=== PATIENT | female | born 1975 | race Caucasian/White ===

== ENCOUNTER 2017-06-30 14:32 | Emergency (ER) | payer OTHER ==
[2017-06-30 14:55] VITALS: BP 136/83; PULSE 104; TEMP 98.6; BMI 45.4
--- NOTE | 2017-06-30 14:57 | PDOC ---
Rapid Medical Evaluation Time Seen by Provider: 06/30/17 14:50 Medical Evaluation: Allergies Allergy/AdvReac Type Severity Reaction Status Date / Time No Known Drug Allergies Allergy Verified 05/01/14 17:42 06/30/17 14:51 I have performed a brief in-person evaluation of this patient. The patient presents with a chief complaint of: vag bleeding yesterday, none today, pelvic/abdominal cramping/pain since yesterday, bloating, took Motrin with minimal relief, urinary "incontinence", US and labwork done last Wednesday, no results yet, +SOB, denies palpitations/lightheadedness/dizziness Pertinent physical exam findings: well appearing I have ordered the following: labs, US The patient will proceed to the ED for further evaluation. Discharge Disposition - Diagnosis Pelvic pain - Referrals - Patient Instructions - Post Discharge Activity
[2017-06-30 15:19] LABS: URINE APPEARANCE CLEAR; URINE BILIRUBIN NEGATIVE (NEGATIVE); URINE BLOOD NEGATIVE (NEGATIVE); URINE COLOR STRAW; URINE GLUCOSE (UA) NEGATIVE (NEGATIVE); URINE KETONE NEGATIVE (NEGATIVE); URINE LEUK ESTERASE TRACE (NEGATIVE); URINE NITRITE NEGATIVE (NEGATIVE); URINE PROTEIN NEGATIVE (NEGATIVE); URINE UROBILINOGEN NEGATIVE mg/dL (0.2-1.0)
[2017-06-30 15:21] LABS: BASO % 0.3 % (0-2.0); EOS % 0.6 % (0-4.5); HEMATOCRIT 30.5 % (32.4-45.2); HEMOGLOBIN 10.1 GM/dL (10.7-15.3); MCH 25.7 pg (25.7-33.7); MCHC 33.1 g/dl (32.0-36.0); MEAN CELL VOLUME 77.5 fl (80-96); MEAN PLT VOLUME 8.6 fl (7.5-11.1); MONO % 6.6 % (3.8-10.2); NEUT % 78.5 % (42.8-82.8); PLATELET COUNT 282 K/MM3 (134-434); RBC 3.93 M/mm3 (3.60-5.2); RDW 16.1 % (11.6-15.6); WHITE BLOOD COUNT 10.4 K/mm3 (4.0-10.0)
[2017-06-30 15:24] LABS: HCG,QUALITATIVE URINE NEGATIVE
[2017-06-30 15:42] LABS: ALBUMIN 3.3 g/dl (3.4-5.0); ALK PHOS 89 U/L (45-117); ANION GAP 7 (8-16); BILIRUBIN,TOTAL 0.3 mg/dL (0.2-1.0); BLOOD UREA NITROGEN 15 mg/dL (7-18); CALCIUM 8.4 mg/dL (8.5-10.1); CHLORIDE 103 mmol/L (98-107); CO2 27 mmol/L (21-32); CREATININE 0.7 mg/dL (0.55-1.02); GLUCOSE,RANDOM 103 mg/dL (74-106); POTASSIUM 4.1 mmol/L (3.5-5.1); SGOT/AST 18 U/L (15-37); SGPT/ALT 24 U/L (12-78); SODIUM 137 mmol/L (136-145); TOT PROT 7.3 g/dl (6.4-8.2)
--- NOTE | 2017-06-30 15:51 | PDOC ---
History of Present Illness - General Chief Complaint: Pain, Acute Stated Complaint: ABD PAIN Time Seen by Provider: 06/30/17 14:50 - History of Present Illness Initial Comments: 06/30/17 16:47 41 y.o. female with HTN and proctalgia fugax, anxiety and morbid obesity (s/p Gastric Bypass in 2014) presents c/o 2 day h/o diffuse abdominal cramping that is constant, 10/10 without any radiation. Patient denies any associated fevers/ chills, nausea/vomiting. Patient has been tolerating PO intake and endorses some constipation with 1-2 bowel movements over the last 2 days, normal is 3-4 bowel movement. Patient notes that her LMP finished yesterday and she had similar pain last month following the end of her menstrual cycle. Patient also notes her menstrual cycles have been increasingly heavy for the last 3-4 months. Patient was evaluated by her PMD last week who has scheduled an outpatient TVUS for next week. Past History - Past Medical History Allergies/Adverse Reactions: Allergies Allergy/AdvReac Type Severity Reaction Status Date / Time No Known Drug Allergies Allergy Verified 06/30/17 14:51 Home Medications: Ambulatory Orders NK [No Known Home Medication] 06/30/17 Anemia: No Asthma: No Cancer: No Cardiac Disorders: No CVA: No COPD: No CHF: No Dementia: No GI Disorders: Yes (GERD, OBESITY) Disorders: No HTN: Yes Hypercholesterolemia: No Liver Disease: No Psychiatric Problems: Yes (PANIC ATTACKS) Seizures: No Thyroid Disease: No - Surgical History Abdominal Surgery: Yes (GASTRIC BYPASS: 05/2013) Appendectomy: No Cardiac Surgery: No Cholecystectomy: Yes Lung Surgery: No Neurologic Surgery: No Orthopedic Surgery: No - Suicide/Smoking/Psychosocial Hx Smoking History: Never smoked Have you smoked in the past 12 months: No If you are a former smoker, when did you quit?: 2002 Hx Alcohol Use: Yes Drug/Substance Use Hx: No Substance Use Type: Alcohol Hx Substance Use Treatment: No Review of Systems - Review of Systems Constitutional: No: Chills, Fever HEENTM: No: Recent change in vision, Throat Pain Respiratory: No: Cough, Shortness of Breath Cardiac (ROS): No: Chest Pain, Lightheadedness, Palpitations, Syncope ABD/GI: Yes: Abdominal cramping : No: Burning, Dysuria, Hematuria *Physical Exam - Vital Signs Last Vital Signs Temp Pulse Resp BP Pulse Ox 98.6 F 104 H 19 136/83 100 06/30/17 14:51 06/30/17 14:51 06/30/17 14:51 06/30/17 14:51 06/30/17 14:51 - Physical Exam General Appearance: Yes: Nourished, Obese HEENT: positive: EOMI, JOSELITO Neck: positive: Tender, Supple Respiratory/Chest: positive: Lungs Clear Cardiovascular: positive: S1, S2. negative: Edema, Murmur Gastrointestinal/Abdominal: positive: Normal Bowel Sounds, Soft. negative: Tenderness, Hernia, Mass Musculoskeletal: negative: CVA Tenderness (R), CVA Tenderness (L) Integumentary: negative: Normal Color, Dry, Warm Neurologic: positive: Fully Oriented, Alert ED Treatment Course - LABORATORY CBC & Chemistry Diagram: 06/30/17 15:11 06/30/17 15:11 - ADDITIONAL ORDERS Additional order review: Laboratory Results 06/30/17 06/30/17 15:11 15:11 Lipase 211 Urine Color Straw Urine Appearance Clear Urine pH 6.0 Ur Specific [place] 1.019 Urine Protein Negative Urine Glucose (UA) Negative Urine Ketones Negative Urine Blood Negative Urine Nitrite Negative Urine Bilirubin Negative Urine Urobilinogen Negative Ur Leukocyte Esterase Trace Urine HCG, Qual Negative 06/30/17 15:11 RBC 3.93 MCV 77.5 L MCHC 33.1 RDW 16.1 H D MPV 8.6 D Neutrophils % 78.5 D Lymphocytes % 14.0 D Monocytes % 6.6 Eosinophils % 0.6 Basophils % 0.3 Medical Decision Making - Medical Decision Making 06/30/17 16:59 41 y.o. female who presents with abdominal pain. As patient has a h/o gastric bypass, will obtain CT Abdomen to r/o hernia, intussception as well as ischemia /leak (the latter less likely as surgery in 2015.). CBC, CMP ordered in triage. Patient signed out to Dr. Jefferson (Resident) and Dr. Alvares - CT Abdomen pending. *DC/Admit/Observation/Transfer Diagnosis at time of Disposition: Pelvic pain - Discharge Dispostion Disposition: HOME Condition at time of disposition: Stable - Referrals Referrals: Melinda Valladares [Primary Care Provider] - - Patient Instructions Additional Instructions: You were recently in the hospital because you had abdominal cramping. While you were here, you had labs done which were normal. You also had a CT scan done for your abdomen which did not show any acute pathology. The ultrasound was also normal. We suggest that you take tylenol or ibuprofen for pain. These can be received over the counter. 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 If you develop severe shortness of breath, severe abdominal pain, or chest pain , please go to the hospital. We hope you feel better soon. - Post Discharge Activity
[2017-06-30] MEDS ORDERED: morphine CARPU-JECT 4 MG/1 ML DISP.SYRIN IVPUSH ONE (17:12)
[2017-06-30] MEDS ORDERED: ACETAMINOPHEN 1000 MG/100 ML VIAL (NON FORMULARY) IVPB ONE (17:19)
[2017-06-30] MEDS ORDERED: ACETAMINOPHEN INJECTION 100 ML IVPB ONE (17:24)
[2017-06-30 18:25] LABS: EPI CELLS RARE /HPF (FEW); URINE MUCUS RARE
--- NOTE | 2017-06-30 18:44 | PDOC ---
Attending Attestation - HPI HPI: 06/30/17 18:45 The patient is a 41 year old female, with a significant past medical history of gastric bypass(2014), hypertension, GERD, obesity, and panic attacks, who presents to the emergency department with diffuse, crampy, abdominal pain since yesterday. Patient reports associated hard stools, but denies any nausea, vomiting, diarrhea, melena, or hematochezia. Patient reports similar pain during her LMP the past 2 months. Patient reports her period ended yesterday. She denies any fever or chills. Patient denies any recent travel or sick contacts. - Medical Decision Making 06/30/17 18:46 Documentation prepared by Mragarita Nuñez, acting as medical pathologist for Bertha Murry MD. <Margarita Nuñez - Last Filed: 06/30/17 19:12> - Resident Resident Name: Zion Turnerica - ED Attending Attestation I have performed the following: I have examined & evaluated the patient, The case was reviewed & discussed with the resident, I agree w/resident's findings & plan - Physicial Exam PE: GENERAL: Awake, alert, and fully oriented, in no acute distress HEAD: No signs of trauma EYES: PERRLA, EOMI, sclera anicteric, conjunctiva clear ENT: Auricles normal inspection, hearing grossly normal, nares patent, oropharynx clear without exudates. Moist mucosa NECK: Normal ROM, supple, no lymphadenopathy, JVD, or masses LUNGS: Breath sounds equal, clear to auscultation bilaterally. No wheezes, and no crackles HEART: Regular rate and rhythm, normal S1 and S2, no murmurs, rubs or gallops ABDOMEN: Soft, +periumbilical tenderness, normoactive bowel sounds. No guarding , no rebound. No masses EXTREMITIES: Normal range of motion, no edema. No clubbing or cyanosis. No cords, erythema, or tenderness NEUROLOGICAL: Cranial nerves II through XII grossly intact. Normal speech, normal gait SKIN: Warm, Dry, normal turgor, no rashes or lesions noted. - Medical Decision Making Pt with history of gastric bypass presenting with abd pain. She has had it once before, it is associated with her menstrual periods. She has not had imaging for it in the past, and with history of significant abd surgery, would obtain CT. If wnl, will DC home with facilities locator f/u, as endometriosis is on differential. <Bertha Murry - Last Filed: 07/02/17 12:53> ED Treatment Course - LABORATORY CBC & Chemistry Diagram: 06/30/17 15:11 06/30/17 15:11 - ADDITIONAL ORDERS Additional order review: Laboratory Results 06/30/17 06/30/17 06/30/17 15:11 15:11 15:11 Sodium 137 Potassium 4.1 Chloride 103 Carbon Dioxide 27 Anion Gap 7 L BUN 15 Creatinine 0.7 Creat Clearance w eGFR > 60 Random Glucose 103 Calcium 8.4 L Total Bilirubin 0.3 D AST 18 ALT 24 Alkaline Phosphatase 89 Total Protein 7.3 Albumin 3.3 L Lipase 211 Serum , Qual Urine Color Straw Urine Appearance Clear Urine pH 6.0 Ur Specific [place] 1.019 Urine Protein Negative Urine Glucose (UA) Negative Urine Ketones Negative Urine Blood Negative Urine Nitrite Negative Urine Bilirubin Negative Urine Urobilinogen Negative Ur Leukocyte Esterase Trace Urine WBC (Auto) 1 Urine RBC (Auto) 0 Ur Epithelial Cells Rare Urine Mucus Rare Urine HCG, Qual Negative 06/30/17 13:28 Sodium Potassium Chloride Carbon Dioxide Anion Gap BUN Creatinine Creat Clearance w eGFR Random Glucose Calcium Total Bilirubin AST ALT Alkaline Phosphatase Total Protein Albumin Lipase Serum , Qual Negative Urine Color Urine Appearance Urine pH Ur Specific [place] Urine Protein Urine Glucose (UA) Urine Ketones Urine Blood Urine Nitrite Urine Bilirubin Urine Urobilinogen Ur Leukocyte Esterase Urine WBC (Auto) Urine RBC (Auto) Ur Epithelial Cells Urine Mucus Urine HCG, Qual 06/30/17 15:11 RBC 3.93 MCV 77.5 L MCHC 33.1 RDW 16.1 H D MPV 8.6 D Neutrophils % 78.5 D Lymphocytes % 14.0 D Monocytes % 6.6 Eosinophils % 0.6 Basophils % 0.3 - RADIOLOGY Radiology Studies Ordered: 06/30/17 19:12 EXAM: Transvaginal US SUMMARY: The uterus is normal in size measuring 8.4 x 4.2 x 4.0 cm. No uterine masses are seen. A normal appearing endometrium of 8 mm thickness was demonstrated. The right ovary is normal in size and texture. Arterial flow is documented within the ovary. The left ovary could not be identified. There is no evidence of adnexal masses. There is a trace amount of free fluid within the cul-de- sac. IMPRESSION: Trace free pelvic fluid, otherwise normal pelvic sonogram. - Medications Given in the ED: ED Medications Discontinued Medications Generic Name Dose Route Start Last Admin Trade Name Jamie PRN Reason Stop Dose Admin Acetaminophen 1,000 mg 06/30/17 17:19 06/30/17 17:28 Ofirmev Injection - IVPB 06/30/17 17:20 1,000 mg ONCE ONE Administration Morphine Sulfate 4 mg 06/30/17 17:12 06/30/17 17:23 Morphine Injection - IVPUSH 06/30/17 17:13 Not Given ONCE ONE <Margarita Nuñez - Last Filed: 06/30/17 19:12> - LABORATORY CBC & Chemistry Diagram: 06/30/17 15:11 06/30/17 15:11 <Bertha Murry - Last Filed: 07/02/17 12:53>
--- NOTE | 2017-06-30 19:21 | PDOC ---
*Physical Exam - Vital Signs Last Vital Signs Temp Pulse Resp BP Pulse Ox 98.6 F 104 H 19 136/83 100 06/30/17 14:51 06/30/17 14:51 06/30/17 14:51 06/30/17 14:51 06/30/17 14:51 ED Treatment Course - LABORATORY CBC & Chemistry Diagram: 06/30/17 15:11 06/30/17 15:11 - ADDITIONAL ORDERS Additional order review: Laboratory Results 06/30/17 06/30/17 06/30/17 15:11 15:11 15:11 Sodium 137 Potassium 4.1 Chloride 103 Carbon Dioxide 27 Anion Gap 7 L BUN 15 Creatinine 0.7 Creat Clearance w eGFR > 60 Random Glucose 103 Calcium 8.4 L Total Bilirubin 0.3 D AST 18 ALT 24 Alkaline Phosphatase 89 Total Protein 7.3 Albumin 3.3 L Lipase 211 Serum , Qual Urine Color Straw Urine Appearance Clear Urine pH 6.0 Ur Specific [place] 1.019 Urine Protein Negative Urine Glucose (UA) Negative Urine Ketones Negative Urine Blood Negative Urine Nitrite Negative Urine Bilirubin Negative Urine Urobilinogen Negative Ur Leukocyte Esterase Trace Urine WBC (Auto) 1 Urine RBC (Auto) 0 Ur Epithelial Cells Rare Urine Mucus Rare Urine HCG, Qual Negative 06/30/17 13:28 Sodium Potassium Chloride Carbon Dioxide Anion Gap BUN Creatinine Creat Clearance w eGFR Random Glucose Calcium Total Bilirubin AST ALT Alkaline Phosphatase Total Protein Albumin Lipase Serum , Qual Negative Urine Color Urine Appearance Urine pH Ur Specific [place] Urine Protein Urine Glucose (UA) Urine Ketones Urine Blood Urine Nitrite Urine Bilirubin Urine Urobilinogen Ur Leukocyte Esterase Urine WBC (Auto) Urine RBC (Auto) Ur Epithelial Cells Urine Mucus Urine HCG, Qual 06/30/17 15:11 RBC 3.93 MCV 77.5 L MCHC 33.1 RDW 16.1 H D MPV 8.6 D Neutrophils % 78.5 D Lymphocytes % 14.0 D Monocytes % 6.6 Eosinophils % 0.6 Basophils % 0.3 - RADIOLOGY Radiology Studies Ordered: Category Date Time Status ABDOMEN & PELVIS CT WITH CONTR [CT] Stat CT Scan 06/30/17 17:07 Completed - Medications Given in the ED: ED Medications Discontinued Medications Generic Name Dose Route Start Last Admin Trade Name Freq PRN Reason Stop Dose Admin Acetaminophen 1,000 mg 06/30/17 17:19 06/30/17 17:28 Ofirmev Injection - IVPB 06/30/17 17:20 1,000 mg ONCE ONE Administration Morphine Sulfate 4 mg 06/30/17 17:12 06/30/17 17:23 Morphine Injection - IVPUSH 06/30/17 17:13 Not Given ONCE ONE Medical Decision Making - Medical Decision Making 06/30/17 19:[address] Turner. Pt with CT abd/pelvis- without acute pathology TVUS- WNL, normal sono Will assess pt and prepare for d/c *DC/Admit/Observation/Transfer Diagnosis at time of Disposition: Pelvic pain - Referrals Referrals: Melinda Valladares [Primary Care Provider] - - Patient Instructions - Post Discharge Activity
--- NOTE | 2017-06-30 19:25 | PDOC ---
*Physical Exam - Vital Signs Last Vital Signs Temp Pulse Resp BP Pulse Ox 98.6 F 104 H 19 136/83 100 06/30/17 14:51 06/30/17 14:51 06/30/17 14:51 06/30/17 14:51 06/30/17 14:51 ED Treatment Course - LABORATORY CBC & Chemistry Diagram: 06/30/17 15:11 06/30/17 15:11 - ADDITIONAL ORDERS Additional order review: Laboratory Results 06/30/17 06/30/17 06/30/17 15:11 15:11 15:11 Sodium 137 Potassium 4.1 Chloride 103 Carbon Dioxide 27 Anion Gap 7 L BUN 15 Creatinine 0.7 Creat Clearance w eGFR > 60 Random Glucose 103 Calcium 8.4 L Total Bilirubin 0.3 D AST 18 ALT 24 Alkaline Phosphatase 89 Total Protein 7.3 Albumin 3.3 L Lipase 211 Serum , Qual Urine Color Straw Urine Appearance Clear Urine pH 6.0 Ur Specific [place] 1.019 Urine Protein Negative Urine Glucose (UA) Negative Urine Ketones Negative Urine Blood Negative Urine Nitrite Negative Urine Bilirubin Negative Urine Urobilinogen Negative Ur Leukocyte Esterase Trace Urine WBC (Auto) 1 Urine RBC (Auto) 0 Ur Epithelial Cells Rare Urine Mucus Rare Urine HCG, Qual Negative 06/30/17 13:28 Sodium Potassium Chloride Carbon Dioxide Anion Gap BUN Creatinine Creat Clearance w eGFR Random Glucose Calcium Total Bilirubin AST ALT Alkaline Phosphatase Total Protein Albumin Lipase Serum , Qual Negative Urine Color Urine Appearance Urine pH Ur Specific [place] Urine Protein Urine Glucose (UA) Urine Ketones Urine Blood Urine Nitrite Urine Bilirubin Urine Urobilinogen Ur Leukocyte Esterase Urine WBC (Auto) Urine RBC (Auto) Ur Epithelial Cells Urine Mucus Urine HCG, Qual 06/30/17 15:11 RBC 3.93 MCV 77.5 L MCHC 33.1 RDW 16.1 H D MPV 8.6 D Neutrophils % 78.5 D Lymphocytes % 14.0 D Monocytes % 6.6 Eosinophils % 0.6 Basophils % 0.3 - Medications Given in the ED: ED Medications Discontinued Medications Generic Name Dose Route Start Last Admin Trade Name Freq PRN Reason Stop Dose Admin Acetaminophen 1,000 mg 06/30/17 17:19 06/30/17 17:28 Ofirmev Injection - IVPB 06/30/17 17:20 1,000 mg ONCE ONE Administration Morphine Sulfate 4 mg 06/30/17 17:12 06/30/17 17:23 Morphine Injection - IVPUSH 06/30/17 17:13 Not Given ONCE ONE Medical Decision Making - Medical Decision Making 06/30/17 19:[address] Turner. 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 While you were here, you had labs done which were normal. You also had a CT scan done for your abdomen which did not show any acute pathology. The ultrasound was also normal. We suggest that you take tylenol or ibuprofen for pain. These can be received over the counter. Please follow up with your primary care doctor and a payroll master in a week. If you develop severe shortness of breath, severe abdominal pain, or chest pain , please go to the hospital. We hope you feel better soon. - Post Discharge Activity
== END 2017-06-30 20:08 | disposition home or self-care (01) ==
LOC: JER 14:32
PROC: 3E033NZ Introduction of Analgesics, Hypnotics, Sedatives into Peripheral Vein, Percutaneous Approach (ICD-10-PCS; principal; 2017-06-30)
DX: R10.9 Unspecified abdominal pain (principal); Z98.84 Bariatric surgery status
CPT/HCPCS: 36415; 74177-TC; 76830-TC; 80053; 81003; 81015; 83690; 84703; 85025; 87086; 99284-25

== ENCOUNTER 2017-10-24 02:47 | Emergency (ER) | payer OTHER ==
[2017-10-24 02:55] VITALS: BMI 48.6
--- NOTE | 2017-10-24 03:18 | PDOC ---
History of Present Illness - General Chief Complaint: Allergic Reaction Stated Complaint: ALLERGIC REACTION Time Seen by Provider: 10/24/17 03:10 - History of Present Illness Initial Comments: 10/24/17 03:18 Ms. Gomez is a 41 yo female w/ pmh of gastric bypass(2014), HTN, GERD, morbid obesity, and panic attacks who presents for evaluation of lip and eye swelling this evening. She reports it started around 5 or 6 last night while she was at a graduation constitution party and she initially thought that she was bitten by a mosquito, however when she got home she realized her left eye had swollen as well. She currently takes HCTZ and lisinopril for her HTN. Denies any difficulty breathing although she says that this is increasing her anxiety. The patient denies chest pain, shortness of breath, headache and dizziness. Denies fever, chills, nausea, vomit, diarrhea and constipation. Denies dysuria, frequency, urgency and hematuria. Allergies: NKDA Past History - Past Medical History Allergies/Adverse Reactions: Allergies Allergy/AdvReac Type Severity Reaction Status Date / Time No Known Drug Allergies Allergy Verified 10/24/17 02:49 Home Medications: Ambulatory Orders EPINEPHrine (EPI-PEN 0.3MG) [Epipen 0.3MG -] 0.3 mg IM ASDIR #2 pens 10/24/17 Hydrochlorothiazide [Hctz -] 12.5 mg PO DAILY #30 cap 10/24/17 Prednisone [Prednisone 50 MG TABLETS] 50 mg PO DAILY #4 tablet 10/24/17 Anemia: No Asthma: No Cancer: No Cardiac Disorders: No CVA: No COPD: No CHF: No Dementia: No GI Disorders: Yes (GERD, OBESITY) Disorders: No HTN: Yes Hypercholesterolemia: No Liver Disease: No Psychiatric Problems: Yes (PANIC ATTACKS) Seizures: No Thyroid Disease: No - Surgical History Abdominal Surgery: Yes (GASTRIC BYPASS: 05/2013) Appendectomy: No Cardiac Surgery: No Cholecystectomy: Yes Lung Surgery: No Neurologic Surgery: No Orthopedic Surgery: No - Suicide/Smoking/Psychosocial Hx Smoking History: Never smoked Have you smoked in the past 12 months: No If you are a former smoker, when did you quit?: 2002 Information on smoking cessation initiated: No Hx Alcohol Use: No Drug/Substance Use Hx: No Substance Use Type: Alcohol Hx Substance Use Treatment: No Review of Systems - Review of Systems Comments:: 10/24/17 03:23 GENERAL/CONSTITUTIONAL: No fever or chills. No weakness. HEAD, EYES, EARS, NOSE AND THROAT: +Left eye swelling with midline lip swelling. No change in vision. No ear pain or discharge. No sore throat. CARDIOVASCULAR: No chest pain or shortness of breath RESPIRATORY: No cough, wheezing, or hemoptysis. GASTROINTESTINAL: No nausea, vomiting, diarrhea or constipation. GENITOURINARY: No dysuria, frequency, or change in urination. MUSCULOSKELETAL: No joint or muscle swelling or pain. No neck or back pain. SKIN: No rash NEUROLOGIC: No headache, vertigo, loss of consciousness, or change in strength/ sensation. ENDOCRINE: No increased thirst. No abnormal weight change HEMATOLOGIC/LYMPHATIC: No anemia, easy bleeding, or history of blood clots. ALLERGIC/IMMUNOLOGIC: No hives or skin allergy. *Physical Exam - Vital Signs Last Vital Signs Temp Pulse Resp BP Pulse Ox 98.3 F 97 H 19 139/77 97 10/24/17 02:50 10/24/17 02:50 10/24/17 02:50 10/24/17 02:50 10/24/17 02:50 - Physical Exam Comments: 10/24/17 03:24 GENERAL: +Patient morbidly obese. Awake, alert, and fully oriented, in no acute distress HEAD: No signs of trauma, normocephalic, atraumatic EYES: +Left eye swollen however open with normal vision. Middle of lip swollen. PERRLA, EOMI, sclera anicteric, conjunctiva clear ENT: Auricles normal inspection, hearing grossly normal, nares patent, oropharynx clear without exudates. Moist mucosa NECK: Normal ROM, supple, no lymphadenopathy, JVD, or masses LUNGS: No distress, speaks full sentences, clear to auscultation bilaterally HEART: Regular rate and rhythm, normal S1 and S2, no murmurs, rubs or gallops, peripheral pulses normal and equal bilaterally. ABDOMEN: Soft, nontender, normoactive bowel sounds. No guarding, no rebound. No masses EXTREMITIES: Normal inspection, Normal range of motion, no edema. No clubbing or cyanosis. NEUROLOGICAL: Cranial nerves II through XII grossly intact. Normal speech, normal gait, no focal sensorimotor deficits SKIN: Warm, Dry, normal turgor, no rashes or lesions noted. ED Treatment Course - LABORATORY CBC & Chemistry Diagram: 10/24/17 04:07 10/24/17 04:07 Medical Decision Making - Medical Decision Making 10/24/17 04:34 Ms. Gomez is a 41 yo female w/ pmh as described who presents for evaluation of swelling. Basic labs and urine sent for evaluation. Patient symptoms noted to be unilateral and suspicious for angioedema. Patient is noted to be on combination HCTZ/Lisinopril. Patient advised this may have cause her swelling and told to d/c lisinopril until able to f/u with PCP for further evaluation. 10/24/17 06:03 Patient given Rx for HCTZ dose w/out lisinopril. Prednisone burst and epipen Rx given as well. Patient will stay in ER until 0830 for observation. 10/24/17 06:23 Patient signed out to oncoming team for further observation. *DC/Admit/Observation/Transfer Diagnosis at time of Disposition: Swelling - Prescriptions - Referrals - Patient Instructions - Post Discharge Activity
[2017-10-24] MEDS ORDERED: methylPREDNISolone NA SUCC 125 MG/2 ML VIAL IVPUSH ONE (04:00)
[2017-10-24] MEDS ORDERED: FAMOTIDINE 20 MG/50 ML IVPB 20 MG/50 ML MG IVPB ONE ×3 (04:01→05:04)
--- NOTE | 2017-10-24 04:03 | PDOC ---
Attending Attestation - Resident Resident Name: Leandro Newberry - ED Attending Attestation I have performed the following: I have examined & evaluated the patient, The case was reviewed & discussed with the resident, I agree w/resident's findings & plan, Exceptions are as noted - HPI HPI: 10/24/17 05:03 41yo F hx of gastric bypass (2014), HTN (on lisinopril/HCTZ combo pill), GERD, morbid obesity and panic attacks presents to the ED with allergic rxn. Pt ate at a BBQ yest afternoon, and afterwards at 5:30pm noticed her upper lip was swollen. She did not think much of it but after she went to bed at 10:30p, she woke up at 12:30 and noticed her L upper eyelid was swollen. At that point she activated EMS. She was given benadryl 50mg en route and eyelid swelling has markedly improved per EMS. Pt denies any SOB, N/V, hives. Has never had an allergic reaction before. Last lisinopril was taken 11am yesterday. DEnies CP, F /C, abd pain, urinary sxs, weakness, numbness. Pt states she feels anxious and requests her home dose of xanax. - Physicial Exam PE: 10/24/17 05:16 GENERAL: Awake, alert, and fully oriented, in no acute distress. Obese. HEAD: No signs of trauma EYES: PERRLA, EOMI, sclera anicteric, conjunctiva clear. L upper eyelid with mild watery edema ENT: Nares patent, upper lip mildly edematous. No tongue edema. Mallampati II. NECK: Normal ROM, supple, no lymphadenopathy, JVD, or masses LUNGS: Breath sounds equal, clear to auscultation bilaterally. No wheezes, and no crackles HEART: Regular rate and rhythm, normal S1 and S2, no murmurs, rubs or gallops ABDOMEN: Soft, nontender, normoactive bowel sounds. No guarding, no rebound. No masses EXTREMITIES: Normal range of motion, no edema. No clubbing or cyanosis. No cords, erythema, or tenderness NEUROLOGICAL: Normal speech, cranial nerves intact, 5/5 strength in all 4 extremities, normal sensation to light touch in all 4 extremities, normal cerebellar exam, normal gait SKIN: Warm, Dry, normal turgor, no rashes or lesions noted. - Medical Decision Making 10/24/17 05:21 41yo F presents to the ED with likely BETINA angioedema vs less likely, allergic rxn. Pt treated with benadryl 50mg IV, methylpred 125mg, pepcid. No tongue involvement at this time and sxs seem to have improved since activating EMS. Will observe for a full 6hrs. If no progression of sxs, pt can be DC with strict return precautions. Will prescribe epi pen, prednisone, and HCTZ until f/ u with PMD. Pt instructed to stop lisinopril. Pt put on ED obs, case discussed with Dr. Crouch. 10/24/17 07:00 PT signed out to day attending for reassessment and further mgmt/dispo
[2017-10-24] MEDS ORDERED: ALPRAZolam 0.25 MG TABLET PO ONE (04:15)
[2017-10-24 04:20] LABS: BASO % 0.6 % (0-2.0); HEMATOCRIT 30.5 % (32.4-45.2); HEMOGLOBIN 9.8 GM/dL (10.7-15.3); LYMPH % 18.7 % (8-40); MCH 23.4 pg (25.7-33.7); MCHC 32.2 g/dl (32.0-36.0); MEAN CELL VOLUME 72.8 fl (80-96); MEAN PLT VOLUME 8.6 fl (7.5-11.1); MONO % 8.5 % (3.8-10.2); NEUT % 71.2 % (42.8-82.8); PLATELET COUNT 276 K/MM3 (134-434); RBC 4.19 M/mm3 (3.60-5.2); RDW 16.9 % (11.6-15.6); WHITE BLOOD COUNT 9.5 K/mm3 (4.0-10.0)
[2017-10-24 04:32] LABS: URINE APPEARANCE CLEAR; URINE BILIRUBIN NEGATIVE (<2.0 mg/dL); URINE COLOR LTYELLOW; URINE GLUCOSE (UA) NEGATIVE (NEGATIVE); URINE KETONE NEGATIVE (NEGATIVE); URINE LEUK ESTERASE NEGATIVE (NEGATIVE); URINE NITRITE NEGATIVE (NEGATIVE); URINE PROTEIN NEGATIVE (NEGATIVE)
[2017-10-24 04:40] LABS: HCG,QUALITATIVE URINE NEGATIVE
[2017-10-24 04:56] LABS: ALBUMIN 3.1 g/dl (3.4-5.0); ALK PHOS 72 U/L (45-117); ANION GAP 7 (8-16); BILIRUBIN,TOTAL 0.1 mg/dL (0.2-1.0); BLOOD UREA NITROGEN 12 mg/dL (7-18); CALCIUM 8.3 mg/dL (8.5-10.1); CHLORIDE 105 mmol/L (98-107); CO2 24 mmol/L (21-32); CREATININE 0.6 mg/dL (0.55-1.02); GLUCOSE,RANDOM 105 mg/dL (74-106); SGOT/AST 22 U/L (15-37); SGPT/ALT 25 U/L (12-78); SODIUM 136 mmol/L (136-145); TOT PROT 7.3 g/dl (6.4-8.2)
[2017-10-24] MEDS ORDERED: ALPRAZolam 0.25 MG TABLET ONE (05:02)
[2017-10-24] MEDS ORDERED: methylPREDNISolone NA SUCC 125 MG/2 ML VIAL ONE (05:04)
[2017-10-24 08:12] VITALS: BP 111/67; PULSE 88; TEMP 98.4
--- NOTE | 2017-10-24 08:33 | PDOC ---
*Physical Exam - Vital Signs Last Vital Signs Temp Pulse Resp BP Pulse Ox 98.4 F 88 16 111/67 100 10/24/17 08:11 10/24/17 08:11 10/24/17 08:11 10/24/17 08:11 10/24/17 08:11 - Physical Exam Comments: 10/24/17 08:31 GENERAL: Awake, alert, and fully oriented, in no acute distress HEAD: No signs of trauma, normocephalic, atraumatic EYES: PERRLA, EOMI, sclera anicteric, conjunctiva clear ENT: Auricles normal inspection, hearing grossly normal, nares patent, oropharynx clear without exudates. Moist mucosa NECK: Normal ROM, supple, no lymphadenopathy, JVD, or masses LUNGS: No distress, speaks full sentences, clear to auscultation bilaterally HEART: Regular rate and rhythm, normal S1 and S2, no murmurs, rubs or gallops, peripheral pulses normal and equal bilaterally. EXTREMITIES: Normal inspection, Normal range of motion, no edema. No clubbing or cyanosis. NEUROLOGICAL: Cranial nerves II through XII grossly intact. Normal speech, normal gait, no focal sensorimotor deficits SKIN: Warm, Dry, normal turgor, no rashes or lesions noted. ED Treatment Course - LABORATORY CBC & Chemistry Diagram: 10/24/17 04:07 10/24/17 04:07 - ADDITIONAL ORDERS Additional order review: Laboratory Results 10/24/17 10/24/17 04:09 04:07 Sodium 136 Potassium 4.0 Chloride 105 Carbon Dioxide 24 Anion Gap 7 L BUN 12 Creatinine 0.6 Creat Clearance w eGFR > 60 Random Glucose 105 Calcium 8.3 L Total Bilirubin 0.1 L AST 22 ALT 25 Alkaline Phosphatase 72 Creatine Kinase 90 Troponin I < 0.02 Total Protein 7.3 Albumin 3.1 L Urine Color Ltyellow Urine Appearance Clear Urine pH 5.0 Ur Specific [place] 1.018 Urine Protein Negative Urine Glucose (UA) Negative Urine Ketones Negative Urine Blood Negative Urine Nitrite Negative Urine Bilirubin Negative Urine Urobilinogen 2.0 H Ur Leukocyte Esterase Negative Urine HCG, Qual Negative 10/24/17 04:07 RBC 4.19 MCV 72.8 L MCHC 32.2 RDW 16.9 H MPV 8.6 Neutrophils % 71.2 Lymphocytes % 18.7 D Monocytes % 8.5 Eosinophils % 1.0 Basophils % 0.6 - Medications Given in the ED: ED Medications Discontinued Medications Generic Name Dose Route Start Last Admin Trade Name Jamie PRN Reason Stop Dose Admin Alprazolam 0.5 mg 10/24/17 04:15 10/24/17 05:14 Xanax - PO 10/24/17 04:16 0.5 mg ONCE ONE Administration Famotidine/Sodium Chloride 20 mg in 50 mls @ 100 mls/hr 10/24/17 04:01 05:14 Pepcid 20 Mg Premixed Ivpb - IVPB 10/24/17 04:30 100 mls/hr ONCE ONE Administration Methylprednisolone Sodium Succinate 125 mg 10/24/17 04:00 10/24/17 04:12 Solu-Medrol - IVPUSH 10/24/17 04:01 125 mg ONCE ONE Administration Medical Decision Making - Medical Decision Making 10/24/17 08:[address] Newberry. Patient is 41F with history of gastric bypass (2014), HTN, GERD, morbid obesity, and panic attacks here today with angioedema. Good for discharge at 8:30 if symptoms continue to be resolved. Patient re-evaluated, swelling has resolved and patient feels well. Lungs clear. Instructed to stop nadeem inhibitor. Discharged with return precautions and PCP follow up. *DC/Admit/Observation/Transfer Diagnosis at time of Disposition: Swelling - Prescriptions - Referrals - Patient Instructions - Post Discharge Activity
== END 2017-10-24 09:02 | disposition home or self-care (01) ==
LOC: JER 02:47 → UNDOADMOB 05:40 → JERBED 05:40
PROC: 3E033GC Introduction of Other Therapeutic Substance into Peripheral Vein, Percutaneous Approach (ICD-10-PCS; principal; 2017-10-24)
PROC: 3E0333Z Introduction of Anti-inflammatory into Peripheral Vein, Percutaneous Approach (ICD-10-PCS; 2017-10-24)
DX: T78.3XXA Angioneurotic edema, initial encounter (principal); T46.4X5A Adverse effect of angiotensin-converting-enzyme inhibitors, initial encounter; Y92.038 Other place in apartment as the place of occurrence of the external cause
CPT/HCPCS: 36415; 80053; 81003; 82550; 84484; 84703; 85025; 87086; 96365; 96375; 99283-25

== ENCOUNTER 2018-01-18 05:45 | Emergency (ER) | payer OTHER ==
[2018-01-18 06:04] VITALS: TEMP 98.6; BMI 44.6
[2018-01-18] MEDS ORDERED: diazePAM 5 MG TABLET PO ONE (06:28)
--- NOTE | 2018-01-18 06:28 | PDOC ---
History of Present Illness - General Chief Complaint: Chest Pain Stated Complaint: CHEST PAIN History Source: Patient Exam Limitations: No Limitations - History of Present Illness Initial Comments: 01/18/18 06:25 42-year-old female history of anxiety and panic attacks previous migraine headaches and hypertension here today complaining of headache and epigastric abdominal pain. patient has been under a lot of stress recently working 2 jobs and is currently undergoing a divorce describes . has been getting several episodes of racing heart beat similar to prior panic attackes. denies any nausea or vomiting, no chest pressure, no new weakness numbness or tingling no head trauma no fevers chills no change to her vision 01/18/18 07:00 Past History - Past Medical History Allergies/Adverse Reactions: Allergies Allergy/AdvReac Type Severity Reaction Status Date / Time No Known Drug Allergies Allergy Verified 01/18/18 06:01 Home Medications: Ambulatory Orders EPINEPHrine (EPI-PEN 0.3MG) [Epipen 0.3MG -] 0.3 mg IM ASDIR #2 pens 10/24/17 Hydrochlorothiazide [Hctz -] 12.5 mg PO DAILY #30 cap 10/24/17 Prednisone [Prednisone 50 MG TABLETS] 50 mg PO DAILY #4 tablet 10/24/17 Anemia: No Asthma: No Cancer: No Cardiac Disorders: No CVA: No COPD: No CHF: No Dementia: No GI Disorders: Yes (GERD, OBESITY) Disorders: No HTN: Yes Hypercholesterolemia: No Liver Disease: No Psychiatric Problems: Yes (PANIC ATTACKS) Seizures: No Thyroid Disease: No - Surgical History Abdominal Surgery: Yes (GASTRIC BYPASS: 05/2013) Appendectomy: No Cardiac Surgery: No Cholecystectomy: Yes Lung Surgery: No Neurologic Surgery: No Orthopedic Surgery: No - Immunization History Immunization Up to Date: No - Suicide/Smoking/Psychosocial Hx Smoking History: Never smoked Have you smoked in the past 12 months: No If you are a former smoker, when did you quit?: 2002 Information on smoking cessation initiated: No Hx Alcohol Use: No Drug/Substance Use Hx: No Substance Use Type: Alcohol Hx Substance Use Treatment: No Review of Systems - Review of Systems Constitutional: No: Diaphoresis, Fever HEENTM: No: Eye Pain, Blurred Vision Respiratory: No: Cough, Orthopnea, Shortness of Breath Cardiac (ROS): Yes: Chest Pain ABD/GI: Yes: Nausea : No: Burning, Dysuria, Discharge Musculoskeletal: Yes: Back Pain Integumentary: No: Bruising Neurological: Yes: Headache All Other Systems: Reviewed and Negative *Physical Exam - Vital Signs Last Vital Signs Temp Pulse Resp BP Pulse Ox 98.6 F 109 H 20 132/61 99 01/18/18 05:48 01/18/18 05:48 01/18/18 05:48 01/18/18 05:48 01/18/18 05:48 - Physical Exam General Appearance: Yes: Appropriately Dressed HEENT: positive: Normal ENT Inspection Neck: positive: Trachea midline Respiratory/Chest: positive: Lungs Clear, Normal Breath Sounds. negative: Chest Tender Cardiovascular: positive: Regular Rhythm, Regular Rate Gastrointestinal/Abdominal: positive: Normal Bowel Sounds, Flat, Soft. negative : Tender Musculoskeletal: positive: Normal Inspection. 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 Differential includes anemia electrolyte abnormality plan treat headache with IV fluids Reglan Tylenol will treat the muscle spasm and anxiety with Valium 5 mg by mouth follow-up with outpatient evaluation *DC/Admit/Observation/Transfer - Referrals Referrals: Melinda Valladares [Primary Care Provider] - - Patient Instructions - Post Discharge Activity
[2018-01-18] MEDS ORDERED: METOCLOPRAMIDE HCL INJECTION 10 MG/2 ML VIAL IVPUSH ONE (06:29)
[2018-01-18] MEDS ORDERED: SODIUM CHLORIDE 0.9% 1000 ML INFUS.BAG IV ONE (06:30)
[2018-01-18] MEDS ORDERED: diazePAM 5 MG TABLET ONE (07:14)
[2018-01-18] MEDS ORDERED: METOCLOPRAMIDE HCL INJECTION 10 MG/2 ML VIAL ONE (07:14)
[2018-01-18 07:20] LABS: BASO % 0.8 % (0-2.0); EOS % 2.3 % (0-4.5); HEMATOCRIT 30.4 % (32.4-45.2); HEMOGLOBIN 9.5 GM/dL (10.7-15.3); LYMPH % 20.2 % (8-40); MCH 21.7 pg (25.7-33.7); MCHC 31.3 g/dl (32.0-36.0); MEAN CELL VOLUME 69.4 fl (80-96); MEAN PLT VOLUME 8.4 fl (7.5-11.1); MONO % 6.8 % (3.8-10.2); NEUT % 69.9 % (42.8-82.8); PLATELET COUNT 297 K/MM3 (134-434); RBC 4.38 M/mm3 (3.60-5.2); RDW 17.2 % (11.6-15.6); WHITE BLOOD COUNT 7.3 K/mm3 (4.0-10.0)
[2018-01-18 07:48] LABS: ALBUMIN 3.1 g/dl (3.4-5.0); ANION GAP 9 MMOL/L (8-16); BLOOD UREA NITROGEN 12 mg/dL (7-18); CALCIUM 8.5 mg/dL (8.5-10.1); CHLORIDE 103 mmol/L (98-107); CO2 28 mmol/L (21-32); CREATININE 0.6 mg/dL (0.55-1.3); GLUCOSE,RANDOM 110 mg/dL (74-106); POTASSIUM 3.5 mmol/L (3.5-5.1); SGOT/AST 18 U/L (15-37); SGPT/ALT 20 U/L (13-61); SODIUM 140 mmol/L (136-145)
[2018-01-18 07:52] LABS: ALK PHOS 80 U/L (45-117); BILIRUBIN,TOTAL 0.2 mg/dL (0.2-1); TOT PROT 7.5 g/dl (6.4-8.2)
[2018-01-18 08:22] LABS: HCG,QUALITATIVE URINE Negative
[2018-01-18 08:32] LABS: URINE APPEARANCE CLEAR; URINE BILIRUBIN NEGATIVE (<2.0 mg/dL); URINE COLOR STRAW; URINE GLUCOSE (UA) NEGATIVE (NEGATIVE); URINE KETONE NEGATIVE (NEGATIVE); URINE LEUK ESTERASE NEGATIVE (NEGATIVE); URINE NITRITE NEGATIVE (NEGATIVE); URINE PROTEIN NEGATIVE (NEGATIVE); URINE UROBILINOGEN NEGATIVE mg/dL (0.2-1.0)
[2018-01-18 08:40] LABS: EPI CELLS RARE /HPF (FEW)
--- NOTE | 2018-01-18 09:04 | PDOC ---
*Physical Exam - Vital Signs Last Vital Signs Temp Pulse Resp BP Pulse Ox 98.6 F 109 H 20 132/61 99 01/18/18 05:48 01/18/18 05:48 01/18/18 05:48 01/18/18 05:48 01/18/18 06:22 - Physical Exam Comments: 01/18/18 08:59 Vital signs normal, heart rate 80 on my examination Seated up in stretcher, smiling and feeling much better Heart is regular, lungs are clear No edema or calf tenderness ED Treatment Course - LABORATORY CBC & Chemistry Diagram: 01/18/18 07:08 01/18/18 07:08 - ADDITIONAL ORDERS Additional order review: Laboratory Results 01/18/18 01/18/18 07:55 07:08 Sodium 140 Potassium 3.5 Chloride 103 Carbon Dioxide 28 Anion Gap 9 BUN 12 Creatinine 0.6 Creat Clearance w eGFR > 60 Random Glucose 110 H Calcium 8.5 Total Bilirubin 0.2 AST 18 ALT 20 Alkaline Phosphatase 80 Creatine Kinase 73 Troponin I < 0.02 Total Protein 7.5 Albumin 3.1 L Urine Color Straw Urine Appearance Clear Urine pH 7.0 D Ur Specific [place] 1.009 Urine Protein Negative Urine Glucose (UA) Negative Urine Ketones Negative Urine Blood 2+ H Urine Nitrite Negative Urine Bilirubin Negative Urine Urobilinogen Negative Ur Leukocyte Esterase Negative Urine WBC (Auto) 1 Urine RBC (Auto) 8 Ur Epithelial Cells Rare Urine HCG, Qual Negative 01/18/18 07:08 RBC 4.38 MCV 69.4 L MCHC 31.3 L RDW 17.2 H MPV 8.4 Neutrophils % 69.9 Lymphocytes % 20.2 Monocytes % 6.8 Eosinophils % 2.3 D Basophils % 0.8 - Medications Given in the ED: ED Medications Discontinued Medications Generic Name Dose Route Start Last Admin Trade Name Freq PRN Reason Stop Dose Admin Diazepam 5 mg 01/18/18 06:28 01/18/18 07:21 Valium - PO 01/18/18 06:29 5 mg ONCE ONE Administration Metoclopramide HCl 10 mg 01/18/18 06:29 01/18/18 07:21 Reglan Injection - IVPUSH 01/18/18 06:30 10 mg ONCE ONE Administration Sodium Chloride 1,000 ml 01/18/18 06:30 01/18/18 07:21 Normal Saline - IV 01/18/18 06:31 1,000 ml ONCE ONE Administration Medical Decision Making - Medical Decision Making 01/18/18 08:59 Received signout on this healthy 42-year-old female with history of anxiety who presented with episode of chest pain/palpitations/hand tingling/feeling of doom while sitting at home last night, had very similar episode the night before. This is similar to past anxiety or panic attacks, but she did not take her Xanax as she was afraid something was happening with a heart. She has no exertional limitations, no PE risk factors. EKG was nonfocal and without acute ischemic changes. Plan at sign out was reassurance, follow up labs and chest x-ray, and discharge if she felt better. Labs are normal except for baseline anemia that has been present since her gastric bypass, troponin is negative, chest x-ray is clear. Feels much better, agrees with discharge plan, has Xanax at home. Understands return criteria. *DC/Admit/Observation/Transfer Diagnosis at time of Disposition: Anxiety attack - Discharge Dispostion Disposition: HOME Condition at time of disposition: Improved - Referrals Referrals: Melinda Valladares [Primary Care Provider] - - Patient Instructions Printed Discharge Instructions: DI for Atypical Chest Pain, Anxiety and Panic Attacks (Alternative Therapy) Additional Instructions: Activity as tolerated. Stay hydrated. Blood tests, an EKG, and a chest x-ray showed no acute abnormalities. Your symptoms could be due to an anxiety attack, as discussed. Tylenol 1000 mg every 8 hours and/or ibuprofen 600 mg every 8 hours as needed for headache. Takes Xanax as previously prescribed as needed for persistent anxiety. Continue your medications as previously prescribed by your physician. You should follow up with your primary doctor as soon as possible regarding today's emergency department visit. Return to the emergency department for any new or concerning symptoms, particularly persistent severe anxiety, persistent chest pain or difficulty breathing, cough or fevers or chills. - Post Discharge Activity
[2018-01-18 09:20] VITALS: BP 103/52; PULSE 78
--- NOTE | 2018-01-18 16:18 | EKG ---
Test Reason : Blood Pressure : / mmHG Vent. Rate : 087 BPM Atrial Rate : 087 BPM P-R Int : 178 ms QRS Dur : 096 ms QT Int : 374 ms P-R-T Axes : 035 033 007 degrees QTc Int : 450 ms NORMAL SINUS RHYTHM NORMAL ECG NO PREVIOUS ECGS AVAILABLE Confirmed by Fadi Ordoñez ([id number]) on 01/18/2018 4:18:10 PM Referred By: Confirmed By:Fadi Ordoñez
== END 2018-01-18 09:19 | disposition home or self-care (01) ==
LOC: JER 05:45
PROC: 3E033GC Introduction of Other Therapeutic Substance into Peripheral Vein, Percutaneous Approach (ICD-10-PCS; principal; 2018-01-18)
PROC: 3E0337Z Introduction of Electrolytic and Water Balance Substance into Peripheral Vein, Percutaneous Approach (ICD-10-PCS; 2018-01-18)
DX: F41.0 Panic disorder [episodic paroxysmal anxiety] (principal)
CPT/HCPCS: 36415; 71046-TC-FY; 80053; 81003; 81015; 82550; 84484; 84703; 85025; 93005; 93010; 96374; 99285-25; J7030

== ENCOUNTER 2019-03-05 00:30 | Emergency (ER) | payer OTHER ==
--- NOTE | 2019-03-05 00:41 | PDOC ---
Attending Attestation - Resident Resident Name: AshleyCaitlyn - ED Attending Attestation I have performed the following: I have examined & evaluated the patient, The case was reviewed & discussed with the resident, I agree w/resident's findings & plan - HPI HPI: 03/05/19 02:52 see resident hpi - Physicial Exam PE: 03/05/19 02:52 agree with resident exam - Medical Decision Making 03/05/19 03:05 43-year-old female with persistent right lower quadrant/right adnexal pain Plan for repeat ultrasound and CT scan of the abdomen and pelvis
[2019-03-05] MEDS ORDERED: SODIUM CHLORIDE 1,000 ML IV STA (01:07)
[2019-03-05 01:11] VITALS: BP 122/71; PULSE 96; TEMP 98.2; BMI 48.0
[2019-03-05 01:35] LABS: EPI CELLS 4.8 /HPF (0-5/HPF); HYALINE CASTS 4 /lpf (0-8); URINE APPEARANCE CLEAR; URINE BACTERIA 35.1 /hpf (NEGATIVE); URINE BILIRUBIN NEGATIVE (NEGATIVE); URINE COLOR YELLOW; URINE GLUCOSE (UA) NEGATIVE (NEGATIVE); URINE KETONE TRACE (NEGATIVE); URINE LEUK ESTERASE TRACE (NEGATIVE); URINE NITRITE NEGATIVE (NEGATIVE); URINE PROTEIN NEGATIVE (NEGATIVE); URINE RBC 1 /hpf (0-4); URINE UROBILINOGEN 0.2 mg/dL (0.2-1.0); URINE WBC 6 /hpf (0-5)
[2019-03-05 01:47] LABS: BASO % 0.6 % (0-2.0); HEMATOCRIT 24.9 % (32.4-45.2); LYMPH % 19.3 % (8-40); MEAN CELL VOLUME 59.3 fl (80-96); MEAN PLT VOLUME 8.9 fl (7.5-11.1); MONO % 7.7 % (3.8-10.2); NEUT % 71.4 % (42.8-82.8); PLATELET COUNT 311 K/MM3 (134-434); RDW 19.9 % (11.6-15.6); WHITE BLOOD COUNT 10.2 K/mm3 (4.0-10.0)
[2019-03-05 02:28] LABS: CREATININE 0.7 mg/dL (0.55-1.3)
[2019-03-05 02:29] LABS: BILIRUBIN,TOTAL 0.3 mg/dL (0.2-1)
[2019-03-05 02:34] LABS: MACROCYTOSIS 0; OVALOCYTE 0; SICKELED CELLS 0; TARGET CELLS 0; TEAR DROP CELLS 0
[2019-03-05 02:35] LABS: HELMET CELLS 0; HOWELL-JOLLY BODIES 0; TOXIC GRANULATION 0
[2019-03-05 02:36] LABS: ANISOCYTOSIS 2+
--- NOTE | 2019-03-05 03:20 | PDOC ---
History of Present Illness - General Chief Complaint: Pain Stated Complaint: ABD AND BACK PAIN Time Seen by Provider: 03/05/19 00:41 History Source: Patient Exam Limitations: No Limitations - History of Present Illness Initial Comments: 03/05/19 03:19 43y F with PMH of HTN, Anxiety, Gastric Bypass presenting to ED with complaints of RLQ abdominal pain that started 1w ago and has been getting worse. Patient went to urgent care last week when pain started, told she had a UTI and was given Macrobid. She then got a call stating that she did not have an infection but she finished the antibiotic course. She says that the pain has stayed in the RLQ and radiates to the back. Associated with nausea. Denies vomiting, diarrhea, constipation, chest pain, sob, vaginal bleeding, discharge, urinary symptoms. Has not had pain like this before. Due to episodes of abnormal uterine bleeding, patient had TVUS done 4d ago which demonstrated normal uterus but adnexae could not be visualized. She has been taking Motrin for the pain but it has not been helping. PMD: PMH: see hpi PSH: see hpi Meds: xanax, hctz Allergies: nkda Social: denies Past History - Past Medical History Allergies/Adverse Reactions: Allergies Allergy/AdvReac Type Severity Reaction Status Date / Time No Known Drug Allergies Allergy Verified 02/20/18 17:22 Home Medications: Ambulatory Orders Hydrochlorothiazide [Hctz -] 25 mg PO DAILY 01/18/18 Alprazolam [Xanax] 0.25 mg PO DAILY #2 tablet MDD 1 02/20/18 Anemia: No Asthma: No Cancer: No Cardiac Disorders: No CVA: No COPD: No CHF: No Dementia: No GI Disorders: Yes (GERD, OBESITY) Disorders: No HTN: Yes Hypercholesterolemia: No Liver Disease: No Psychiatric Problems: Yes (PANIC ATTACKS) Seizures: No Thyroid Disease: No - Surgical History Abdominal Surgery: Yes (GASTRIC BYPASS: 05/2013) Appendectomy: No Cardiac Surgery: No Cholecystectomy: Yes Lung Surgery: No Neurologic Surgery: No Orthopedic Surgery: No - Immunization History Immunization Up to Date: No - Psycho Social/Smoking Cessation Hx Smoking History: Unknown if ever smoked Have you smoked in the past 12 months: No If you are a former smoker, when did you quit?: 2002 Hx Alcohol Use: No Drug/Substance Use Hx: No Substance Use Type: Alcohol Hx Substance Use Treatment: No Review of Systems - Review of Systems Constitutional: No: Chills, Fever, Weakness HEENTM: No: Symptoms Reported Respiratory: No: Symptoms reported Cardiac (ROS): No: Chest Pain, Lightheadedness, Palpitations ABD/GI: Yes: See HPI : No: Symptoms Reported Musculoskeletal: No: Symptoms Reported Integumentary: No: Symptoms Reported Neurological: No: Symptoms reported *Physical Exam - Vital Signs Last Vital Signs Temp Pulse Resp BP Pulse Ox 98.2 F 96 H 18 122/71 97 03/05/19 01:30 EDT 03/05/19 01:30 EDT 03/05/19 01:30 EDT 03/05/19 01:30 EDT 03/05/19 01:30 EDT - Physical Exam General Appearance: Yes: Appropriately Dressed, Obese. No: Apparent Distress HEENT: positive: EOMI, JOSELITO. negative: Scleral Icterus (R), Scleral Icterus (L) Neck: positive: Trachea midline, Supple. negative: Lymphadenopathy (R), Lymphadenopathy (L) Respiratory/Chest: positive: Lungs Clear, Normal Breath Sounds. negative: Crackles, Rales, Rhonchi, Stridor, Wheezing Cardiovascular: positive: Regular Rhythm, Regular Rate, S1, S2. negative: Edema , JVD, Murmur Vascular Pulses: Dorsalis-Pedis (R): 2+, Doralis-Pedis (L): 2+ Female Pelvic Exam: negative: CMT, adnexal tenderness Gastrointestinal/Abdominal: positive: Normal Bowel Sounds, Soft, Tenderness (RLQ ). negative: Protuberent, Guarding, Rebound, Hernia Musculoskeletal: negative: CVA Tenderness Extremity: positive: Normal Capillary Refill. negative: Swelling, Calf Tenderness, Erythema Integumentary: positive: Normal Color, Dry, Warm Neurologic: positive: transfer and line up worker II-XII NML intact, Fully Oriented, Alert, Normal Mood/ Affect, Normal Response, Motor Strength /5 ED Treatment Course - LABORATORY CBC & Chemistry Diagram: 03/05/19 01:19 EST 03/05/19 01:19 EST - ADDITIONAL ORDERS Additional order review: Laboratory Results 03/05/19 03/05/19 03/05/19 01:24 EST 01:24 EST 01:19 EST Sodium 138 Potassium 3.5 Chloride 101 Carbon Dioxide 26 Anion Gap No Result Required. BUN 14.0 Creatinine 0.7 Est GFR (CKD-EPI)AfAm 122.13 Est GFR (CKD-EPI)NonAf 105.37 Random Glucose 108 H Calcium 9.2 Total Bilirubin 0.3 AST 20 ALT 15 Alkaline Phosphatase 87 Total Protein 7.7 Albumin 3.8 Urine Color Yellow Urine Appearance Clear Urine pH 5.0 D Ur Specific [place] 1.033 Urine Protein Negative Urine Glucose (UA) Negative Urine Ketones Trace H Urine Blood Negative Urine Nitrite Negative Urine Bilirubin Negative Urine Urobilinogen 0.2 Ur Leukocyte Esterase Trace Urine WBC (Auto) 6 Urine RBC (Auto) 1 Urine Casts (Auto) 4 U Epithel Cells (Auto) 4.8 Urine Bacteria (Auto) 35.1 Urine HCG, Qual Negative 03/05/19 01:19 EST RBC 4.20 MCV 59.3 L MCHC 32.0 RDW 19.9 H MPV 8.9 Neutrophils % 71.4 Lymphocytes % 19.3 Monocytes % 7.7 Eosinophils % 1.0 Basophils % 0.6 - RADIOLOGY Radiology Studies Ordered: Category Date Time Status ABDOMEN & PELVIS CT WITH CONTR [CT] Stat CT Scan 03/05/19 01:11 Taken TRANSVAGINAL ULTRASOUND US [US] Stat Ultrasound 03/05/19 01:11 Taken - Medications Given in the ED: ED Medications Discontinued Medications Generic Name Dose Route Start Last Admin Trade Name Freq PRN Reason Stop Dose Admin Sodium Chloride 1,000 mls @ 1,000 mls/hr 03/05/19 01:07 EST 03/05/19 02:09 Normal Saline - IV 03/05/19 02:06 1,000 mls/hr ASDIR STA Administration Medical Decision Making - Medical Decision Making 03/05/19 03:26 43y F with PMH of anxiety, htn, gastric bypass presenting with RLQ abdominal pain x 1w. vitals wnl ddx includes but not limited to appendicitis, torsion, toa, cyst, colitis, diverticulitis, nephrolithiasis, uti labs including lipase, lact, ua, ucx ordered. pt refusing pain meds at this time iv fluids, tvus, ctap tvus: normal uterus, ovaries could not be visualized as per prior tvus a few days ago. Surgical changes stomach and left upper quadrant small bowel. 1.7 cm incidental lipoma distal stomach. No bowel obstruction or inflammation. No free fluid or free air. No evidence for appendicitis. Few diverticula colon. Unremarkable liver, spleen, stomach, pancreas, kidneys and gallbladder. 2.4 cm dominant follicle right ovary cannot r/o torsion however patient did not have adnexal tenderness per exam and no acute pain (pain x 1w) will give toradol. no lab abnormalities, no uti. safe for dc home. 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 given return precautions. Discharge - Discharge Information Problems reviewed: Yes Clinical Impression/Diagnosis: Pelvic pain Condition: Good Disposition: HOME - Admission No - Follow up/Referral Referrals: Deuce Nascimento MD [Primary Care Provider] - - Patient Discharge Instructions Patient Printed Discharge Instructions: DI for Abdominal Pain-Adult, DI for Pelvic Pain Additional Instructions: You were seen in the emergency room today for abdominal pain. The blood work shows a low hemoglobin, but is otherwise normal. The CT results were provided to you. This is likely due to the follicle in the right ovary. Please follow up with your lieutenant/deputy. You can take ibuprofen and Tylenol for the pain as needed. Come back to the emergency room for worsening pain, vomiting, fevers, chills or if any new or concerning symptom develops. Thank you - Post Discharge Activity
[2019-03-05] MEDS ORDERED: KETOROLAC TROMETHAMINE 15 MG/ML VIAL IVPUSH ONE (03:43)
[2019-03-05] MEDS ORDERED: KETOROLAC TROMETHAMINE 30 MG/1 ML VIAL ONE (03:53)
[2019-03-05 07:31] LABS: ALBUMIN 3.3 g/dl (3.4-5.0); BLOOD UREA NITROGEN 14.1 mg/dL (7-18); CALCIUM 8.6 mg/dL (8.5-10.1); POTASSIUM 3.4 mmol/L (3.5-5.1); TOT PROT 7.6 g/dl (6.4-8.2)
== END 2019-03-05 04:10 | disposition home or self-care (01) ==
LOC: JER 00:30
PROC: 3E0337Z Introduction of Electrolytic and Water Balance Substance into Peripheral Vein, Percutaneous Approach (ICD-10-PCS; principal; 2019-03-05)
PROC: 3E0333Z Introduction of Anti-inflammatory into Peripheral Vein, Percutaneous Approach (ICD-10-PCS; 2019-03-05)
DX: N83.201 Unspecified ovarian cyst, right side (principal); R10.2 Pelvic and perineal pain; I10 Essential (primary) hypertension; F41.9 Anxiety disorder, unspecified; E66.01 Morbid (severe) obesity due to excess calories; Z68.42 Body mass index [BMI] 45.0-49.9, adult; Z98.84 Bariatric surgery status
CPT/HCPCS: 36415; 74177-TC; 76830-TC; 80053; 81003; 83690; 84703; 85025; 87086; 96361; 96374; 99283-25; J7030

== ENCOUNTER 2019-03-19 03:06 | Emergency (ER) | payer OTHER ==
[2019-03-19 03:15] VITALS: BP 143/82; PULSE 92; TEMP 97.8; BMI 47.2
--- NOTE | 2019-03-19 03:25 | PDOC ---
History of Present Illness - General Chief Complaint: Psychiatric Stated Complaint: HEADACHE - History of Present Illness Initial Comments: The pt is a 43F with PMH of HTN, Anxiety, Gastric Bypass, EtOH abuse presents for evaluation of anxiety, concern for GUTIÉRREZ, and chest discomfort. The pt reports feeling more anxious than usual tonight and took her home Xanax 0.5mg PO at 2130 and again at 0200. She describes persistent racing thoughts, concern over her GUTIÉRREZ, and chest discomfort. The GUTIÉRREZ is described as gradual onset, global, tingling, non-radiating, and not associated with any other neurological symptoms. The CP is described as waxing/waning 'discomfort' that is non-exertional and non -positional. She denies current chest pain. She denies fevers/chills, trouble breathing, abdominal pain, N/V/C/D, dysuria, hematuria, or blood in her stool. EtOH: avg 8-9 beers daily, weekend liquor/wine, denies withdrawal symptoms 03/19/19 03:25 Past History - Past Medical History Allergies/Adverse Reactions: Allergies Allergy/AdvReac Type Severity Reaction Status Date / Time No Known Drug Allergies Allergy Verified 03/19/19 03:13 Home Medications: Ambulatory Orders Hydrochlorothiazide [Hctz -] 25 mg PO DAILY 01/18/18 Alprazolam [Xanax] 0.25 mg PO DAILY #2 tablet MDD 1 02/20/18 Anemia: No Asthma: No Cancer: No Cardiac Disorders: No CVA: No COPD: No CHF: No Dementia: No GI Disorders: Yes (GERD, OBESITY) Disorders: No HTN: Yes Hypercholesterolemia: No Liver Disease: No Psychiatric Problems: Yes (PANIC ATTACKS) Seizures: No Thyroid Disease: No - Surgical History Abdominal Surgery: Yes (GASTRIC BYPASS: 05/2013) Appendectomy: No Cardiac Surgery: No Cholecystectomy: Yes Lung Surgery: No Neurologic Surgery: No Orthopedic Surgery: No - Immunization History Immunization Up to Date: No - Psycho Social/Smoking Cessation Hx Smoking History: Never smoked Have you smoked in the past 12 months: No If you are a former smoker, when did you quit?: 2002 Hx Alcohol Use: No Drug/Substance Use Hx: No Substance Use Type: Alcohol Hx Substance Use Treatment: No Review of Systems - Review of Systems Able to Perform ROS?: Yes Comments:: GENERAL/CONSTITUTIONAL: No fever or chills. No weakness HEAD, EYES, EARS, NOSE AND THROAT: No change in vision. No change in hearing CARDIOVASCULAR: No shortness of breath RESPIRATORY: Denies cough, hemoptysis GASTROINTESTINAL: No nausea, vomiting, diarrhea or constipation GENITOURINARY: No dysuria, frequency, or change in urination MUSCULOSKELETAL: No joint or muscle swelling or pain. No neck or back pain SKIN: No rash NEUROLOGIC: No vertigo, loss of consciousness, or change in strength/sensation ENDOCRINE: No increased thirst. No abnormal weight change HEMATOLOGIC/LYMPHATIC: No anemia, easy bleeding, or history of blood clots ALLERGIC/IMMUNOLOGIC: No hives or skin allergy 03/19/19 04:01 Is the patient limited [place] proficient: No *Physical Exam - Vital Signs Last Vital Signs Temp Pulse Resp BP Pulse Ox 97.8 F 92 H 18 143/82 100 03/19/19 03:11 03/19/19 03:11 03/19/19 03:11 03/19/19 03:11 03/19/19 03:11 - Physical Exam Comments: GENERAL: Awake, alert, and oriented to person/place/time, in no acute distress HEAD: No signs of trauma, normocephalic, atraumatic EYES: PERRLA, EOMI, sclera anicteric, conjunctiva clear ENT: Hearing grossly normal, nares patent, oropharynx clear without exudates. Moist mucosa LUNGS: No distress, speaks in full sentences, clear to auscultation bilaterally HEART: Regular rate and rhythm, normal S1 and S2, no murmurs appreciated, peripheral pulses normal and equal bilaterally ABDOMEN: Soft, protuberant, NTTP, normoactive bowel sounds EXTREMITIES: Normal inspection, Normal range of motion, no edema. No clubbing or cyanosis NEUROLOGICAL: Cranial nerves II through XII grossly intact. Normal speech, normal gait, no focal sensorimotor deficits SKIN: Warm, Dry 03/19/19 04:04 ED Treatment Course - LABORATORY CBC & Chemistry Diagram: 03/19/19 04:18 03/19/19 04:18 - RADIOLOGY Radiograph Interpretation: THIS IS A PRELIMINARY REPORT FROM [facility] DATE OF SERVICE: 2019-03-19 05:24:15 EXAM: HEAD CT WITHOUT CONTRAST IMPRESSION No acute intracranial hemorrhage mass effect or midline shift. 03/19/19 06:04 Medical Decision Making - Medical Decision Making The pt is a 43F with PMH of HTN, Anxiety, Gastric Bypass, EtOH abuse presents for evaluation of anxiety, concern for GUTIÉRREZ, and chest discomfort. ED Course Labs sent ECG CXR CT Head Tylenol for symptomatic relief 03/19/19 04:05 ECG w/ NSR; HR 79; QTc 431; narrow QRS; no axis deviation; no HALIMA 03/19/19 04:42 Lytes overall unremarkable No WILLIAMS Trop I neg LFTs neg 03/19/19 04:54 No leukocytosis Anemia noted, near baseline, no indication to transfuse at this time Serum preg neg 03/19/19 05:11 CT head w/o acute pathology CXR w/o PNA, PNX, or effusion, ED staff read Plan for D/C w/ PCP f/u Discharge instructions and return precautions given Patient in agreement and verbalized understanding Dispo: Home 03/19/19 06:08 Discharge - Discharge Information Problems reviewed: Yes Clinical Impression/Diagnosis: Anxiety Headache Qualifiers: Headache type: unspecified Headache chronicity pattern: unspecified pattern Intractability: not intractable Qualified Code(s): R51 - Headache Chest pain Qualifiers: Chest pain type: unspecified Qualified Code(s): R07.9 - Chest pain, unspecified Condition: Stable Disposition: HOME - Admission No - Follow up/Referral Referrals: Deuce Nascimento MD [Primary Care Provider] - Kenya Whitlock NP [Nurse Practitioner] - Renee Ulloa MD [Non Staff, Medical] - Mary Flores MD [Staff Physician] - [facility] [place] [Provider Group] - Patient Discharge Instructions Patient Printed Discharge Instructions: DI for Chest Pain Additional Instructions: You were seen in the Emergency Department for evaluation of headache, chest discomfort, and anxiety. Your labs and imaging were normal. Review the handout provided at discharge. Follow up with your primary care provider this week. Return to the Emergency Department if you develop fevers, chest pain, trouble breathing, worsening pain, change in sensation, worsening symptoms, or any new/ concerning symptoms. - Post Discharge Activity Work/Back to School Note: Back to Work
--- NOTE | 2019-03-19 03:34 | PDOC ---
Attending Attestation - Resident Resident Name: SakinaStas medrano - ED Attending Attestation I have performed the following: I have examined & evaluated the patient, The case was reviewed & discussed with the resident, I agree w/resident's findings & plan - HPI HPI: 03/19/19 05:56 see resident hpi 03/19/19 05:56 - Physicial Exam PE: 03/19/19 05:56 agree with resident exam - Medical Decision Making 03/19/19 05:57 43-year-old female with vague complaints related to anxiety Plan for labs, CT scan, EKG Patient feeling better and refusing Xanax in the emergency department We will discharge home pending results
[2019-03-19] MEDS ORDERED: ACETAMINOPHEN 325 MG TABLET (FP) PO ONE (03:53)
[2019-03-19] MEDS ORDERED: ALPRAZolam 0.25 MG TABLET PO ONE (03:53)
[2019-03-19 04:28] LABS: EOS % 1.8 % (0-4.5); HEMOGLOBIN 8.1 GM/dL (10.7-15.3); LYMPH % 20.3 % (8-40); MCHC 29.9 g/dl (32.0-36.0); MEAN CELL VOLUME 59.7 fl (80-96); MEAN PLT VOLUME 8.8 fl (7.5-11.1); MONO % 7.6 % (3.8-10.2); NEUT % 69.3 % (42.8-82.8); PLATELET COUNT 311 K/MM3 (134-434); RBC 4.52 M/mm3 (3.60-5.2); RDW 20.2 % (11.6-15.6); WHITE BLOOD COUNT 7.8 K/mm3 (4.0-10.0)
[2019-03-19 04:52] LABS: ALBUMIN 3.3 g/dl (3.4-5.0); BILIRUBIN,TOTAL 0.2 mg/dL (0.2-1); BLOOD UREA NITROGEN 12.2 mg/dL (7-18); CALCIUM 8.6 mg/dL (8.5-10.1); CREATININE 0.6 mg/dL (0.55-1.3); POTASSIUM 3.4 mmol/L (3.5-5.1); TOT PROT 7.4 g/dl (6.4-8.2)
[2019-03-19 04:57] LABS: MCH 17.8 pg (25.7-33.7)
[2019-03-19] MEDS ORDERED: ACETAMINOPHEN 325 MG TABLET (FP) ONE (06:26)
[2019-03-19 11:40] LABS: ANISOCYTOSIS 3+; MACROCYTOSIS 0; PLATELET ESTIMATE NORMAL
--- NOTE | 2019-03-19 16:56 | EKG ---
Test Reason : Blood Pressure : / mmHG Vent. Rate : 079 BPM Atrial Rate : 079 BPM P-R Int : 168 ms QRS Dur : 090 ms QT Int : 376 ms P-R-T Axes : 048 033 012 degrees QTc Int : 431 ms POOR DATA QUALITY, INTERPRETATION MAY BE ADVERSELY AFFECTED NORMAL SINUS RHYTHM NORMAL ECG WHEN COMPARED WITH ECG OF 20-FEB-2018 17:49, NO SIGNIFICANT CHANGE WAS FOUND Confirmed by ALEX RAMIREZ, BEATRICE ([id number]) on 03/19/2019 4:55:55 PM Referred By: Confirmed By:BEATRICE JOHNSON MD
== END 2019-03-19 06:47 | disposition home or self-care (01) ==
LOC: JER 03:06
DX: F41.9 Anxiety disorder, unspecified (principal); R51 Headache; R07.9 Chest pain, unspecified; I10 Essential (primary) hypertension; F10.10 Alcohol abuse, uncomplicated; Z98.84 Bariatric surgery status
CPT/HCPCS: 36415; 70450-TC; 71045-TC-FY; 80053; 84484; 84703; 85025; 93005; 93010; 99283-25

== ENCOUNTER 2020-10-21 03:56 | Emergency (ER) | payer OTHER ==
[2020-10-21 04:31] VITALS: BMI 48.0
[2020-10-21 06:06] LABS: BASO % 0.7 % (0-2.0); EOS % 1.9 % (0-4.5); HEMATOCRIT 36.1 % (32.4-45.2); HEMOGLOBIN 11.7 GM/dL (10.7-15.3); LYMPH % 21.8 % (8-40); MCH 25.1 pg (25.7-33.7); MCHC 32.3 g/dl (32.0-36.0); MEAN CELL VOLUME 77.8 fl (80-96); MEAN PLT VOLUME 8.5 fl (7.5-11.1); MONO % 8.1 % (3.8-10.2); NEUT % 67.5 % (42.8-82.8); PLATELET COUNT 269 10^3/uL (134-434); RBC 4.64 M/mm3 (3.60-5.2); RDW 16.1 % (11.6-15.6); WHITE BLOOD COUNT 7.8 K/mm3 (4.0-10.0)
[2020-10-21 06:31] LABS: CALCIUM 9.1 mg/dL (8.5-10.1)
[2020-10-21 06:32] LABS: BLOOD UREA NITROGEN 10.6 mg/dL (7-18)
[2020-10-21 06:33] LABS: ALBUMIN 3.5 g/dl (3.4-5.0)
[2020-10-21 06:35] LABS: CREATININE 0.6 mg/dL (0.55-1.3)
[2020-10-21 06:36] LABS: BILIRUBIN,TOTAL 0.4 mg/dL (0.2-1); TOT PROT 7.6 g/dl (6.4-8.2)
[2020-10-21] MEDS ORDERED: POTASSIUM CHLORIDE TABS 20 MEQ TABLET.ER (FP) PO ONE ×2 (06:49→07:00)
[2020-10-21] MEDS ORDERED: MAG HYDROX/AL HYDROX/SIMETH 30 ML UNIT-DOSE CUP PO ONE (06:55)
[2020-10-21 06:58] VITALS: BP 111/63; PULSE 75; TEMP 98.5
[2020-10-21] MEDS ORDERED: MAG HYDROX/AL HYDROX/SIMETH 30 ML UNIT-DOSE CUP ONE (07:00)
== END 2020-10-21 07:16 | disposition home or self-care (01) ==
LOC: JER 03:56
DX: F41.9 Anxiety disorder, unspecified (principal)
CPT/HCPCS: 36415; 80053; 85025; 93005; 93010; 99284-25

== ENCOUNTER 2021-01-16 06:04 | Emergency (ER) | payer OTHER ==
[2021-01-16 06:51] VITALS: BP 122/81; PULSE 82; TEMP 97.6; BMI 53.1
[2021-01-16] MEDS ORDERED: SODIUM CHLORIDE 1,000 ML IV ONE (08:06)
[2021-01-16] MEDS ORDERED: MAG HYDROX/AL HYDROX/SIMETH -MYLANTA- ORAL SUSPENSION PO ONE (08:06)
[2021-01-16] MEDS ORDERED: FAMOTIDINE 20 MG/50 ML IVPB 20 MG in PREMIX 50 IVPB ONE (08:06)
[2021-01-16] MEDS ORDERED: MAG HYDROX/AL HYDROX/SIMETH 30 ML UNIT-DOSE CUP ONE (08:35)
[2021-01-16] MEDS ORDERED: FAMOTIDINE 20 MG/50 ML IVPB 20 MG/50 ML MG IVPB ONE (08:35)
[2021-01-16 09:17] LABS: BASO % 0.5 % (0-2.0); EOS % 1.9 % (0-4.5); HEMATOCRIT 34.6 % (32.4-45.2); HEMOGLOBIN 11.1 GM/dL (10.7-15.3); LYMPH % 19.3 % (8-40); MCH 24.9 pg (25.7-33.7); MCHC 32.1 g/dl (32.0-36.0); MEAN CELL VOLUME 77.3 fl (80-96); MEAN PLT VOLUME 9.4 fl (7.5-11.1); MONO % 5.3 % (3.8-10.2); PLATELET COUNT 263 10^3/uL (134-434); RBC 4.48 M/mm3 (3.60-5.2); RDW 17.1 % (11.6-15.6); WHITE BLOOD COUNT 8.8 K/mm3 (4.0-10.0)
[2021-01-16 09:21] LABS: PH,URINE 5.5 (5.0-8.0); URINE APPEARANCE CLEAR; URINE BILIRUBIN NEGATIVE (NEGATIVE); URINE COLOR YELLOW; URINE GLUCOSE (UA) NEGATIVE (NEGATIVE); URINE KETONE NEGATIVE (NEGATIVE); URINE LEUK ESTERASE NEGATIVE (NEGATIVE); URINE NITRITE NEGATIVE (NEGATIVE); URINE PROTEIN NEGATIVE (NEGATIVE); URINE UROBILINOGEN 0.2 mg/dL (0.2-1.0)
[2021-01-16 09:22] LABS: HCG,QUALITATIVE URINE Negative
[2021-01-16 09:35] LABS: CHLORIDE 104 mmol/L (98-107); SODIUM 137 mmol/L (136-145)
[2021-01-16 09:37] LABS: ALBUMIN 2.9 g/dl (3.4-5.0); ANION GAP 7 MMOL/L (8-16); CALCIUM 8.5 mg/dL (8.5-10.1); CO2 26 mmol/L (21-32); GLUCOSE,RANDOM 93 mg/dL (74-106); LIPASE 166 U/L (73-393)
[2021-01-16 09:38] LABS: BLOOD UREA NITROGEN 13.1 mg/dL (7-18)
[2021-01-16 09:39] LABS: CREATININE 0.6 mg/dL (0.55-1.3); SGOT/AST 17 U/L (15-37); SGPT/ALT 20 U/L (13-61)
[2021-01-16 09:41] LABS: BILIRUBIN,TOTAL 0.3 mg/dL (0.2-1); TOT PROT 7.7 g/dl (6.4-8.2)
[2021-01-16 09:42] LABS: ALK PHOS 83 U/L (45-117)
== END 2021-01-16 11:20 | disposition home or self-care (01) ==
LOC: JER 06:04
PROC: 3E033NZ Introduction of Analgesics, Hypnotics, Sedatives into Peripheral Vein, Percutaneous Approach (ICD-10-PCS; principal; 2021-01-16)
PROC: 3E033GC Introduction of Other Therapeutic Substance into Peripheral Vein, Percutaneous Approach (ICD-10-PCS; 2021-01-16)
DX: R00.2 Palpitations (principal); R10.9 Unspecified abdominal pain
CPT/HCPCS: 36415; 71046-TC-FY; 80053; 81003; 82550; 83690; 84484; 84703; 85025; 93005; 93010; 99284-25

== ENCOUNTER 2022-10-14 00:41 | Emergency (ER) | payer OTHER ==
[2022-10-14 01:05] VITALS: TEMP 97.3; BMI 44.2
[2022-10-14] MEDS ORDERED: SODIUM CHLORIDE 0.9% 500 ML INFUS.BAG IV ONE (01:18)
[2022-10-14] MEDS ORDERED: METOCLOPRAMIDE HCL INJECTION 10 MG/2 ML VIAL IVPB ONE (01:22)
[2022-10-14] MEDS ORDERED: ACETAMINOPHEN 1000 MG/100 ML BAG IVPB ONE (01:22)
[2022-10-14] MEDS ORDERED: ACETAMINOPHEN INJECTION 100 ML IVPB ONE (01:39)
[2022-10-14] MEDS ORDERED: METOCLOPRAMIDE HCL INJECTION 10 MG/2 ML VIAL ONE (01:39)
[2022-10-14 01:50] LABS: BASO % 0.4 % (0-2.0); EOS % 1.8 % (0-4.5); HEMATOCRIT 34.5 % (32.4-45.2); HEMOGLOBIN 11.3 GM/dL (10.7-15.3); LYMPH % 16.7 % (8-40); MCH 25.2 pg (25.7-33.7); MCHC 32.8 g/dl (32.0-36.0); MEAN CELL VOLUME 76.8 fl (80-96); MEAN PLT VOLUME 8.9 fl (7.5-11.1); MONO % 7.2 % (3.8-10.2); NEUT % 73.9 % (42.8-82.8); PLATELET COUNT 268 10^3/uL (134-434); RBC 4.49 M/mm3 (3.60-5.2); RDW 17.1 % (11.6-15.6); WHITE BLOOD COUNT 8.3 K/mm3 (4.0-10.0)
[2022-10-14 02:00] LABS: POTASSIUM 3.6 mmol/L (3.5-5.1)
[2022-10-14 02:01] LABS: CALCIUM 9.2 mg/dL (8.5-10.1)
[2022-10-14 02:02] LABS: ALBUMIN 3.3 g/dl (3.4-5.0); BLOOD UREA NITROGEN 12.6 mg/dL (7-18); MAGNESIUM 1.7 mg/dL (1.8-2.4)
[2022-10-14] MEDS ORDERED: MAGNESIUM SULF 50% (8.12 MEQ/2 ML-1 GM VIAL) IVPB ONE (02:04)
[2022-10-14 02:05] LABS: CREATININE 0.6 mg/dL (0.55-1.3)
[2022-10-14 02:06] LABS: TOT PROT 7.4 g/dl (6.4-8.2)
[2022-10-14 02:07] LABS: BILIRUBIN,TOTAL 0.2 mg/dL (0.2-1)
[2022-10-14] MEDS ORDERED: ALPRAZolam 1 MG TABLET PO PRN (02:14)
[2022-10-14] MEDS ORDERED: MAGNESIUM 1GM/D5W - 2 GM/200 ML IVPB IVPB ONE (02:46)
[2022-10-14] MEDS ORDERED: ALPRAZolam 0.25 MG TABLET PO PRN (02:54)
[2022-10-14 03:22] VITALS: BP 137/92; PULSE 67; RESP 16
== END 2022-10-14 03:46 | disposition home or self-care (01) ==
LOC: JER 00:41
PROC: 3E033NZ Introduction of Analgesics, Hypnotics, Sedatives into Peripheral Vein, Percutaneous Approach (ICD-10-PCS; principal; 2022-10-14)
PROC: 3E033GC Introduction of Other Therapeutic Substance into Peripheral Vein, Percutaneous Approach (ICD-10-PCS; 2022-10-14)
PROC: 3E033GC Introduction of Other Therapeutic Substance into Peripheral Vein, Percutaneous Approach (ICD-10-PCS; 2022-10-14)
DX: R07.2 Precordial pain (principal); F41.9 Anxiety disorder, unspecified; R51.9 Headache, unspecified; R20.2 Paresthesia of skin; R00.2 Palpitations
CPT/HCPCS: 36415; 70450-TC; 71045-TC-FY; 80053; 82962; 83690; 83735; 84439; 84443; 84484; 84703; 85025; 93005; 93010; 99285-25

== ENCOUNTER 2022-10-15 22:22 | Observation (INO) | payer OTHER ==
[2022-10-15 22:35] VITALS: BMI 47.8
[2022-10-15 23:19] LABS: BASO % 0.6 % (0-2.0); EOS % 1.5 % (0-4.5); HEMATOCRIT 33.9 % (32.4-45.2); HEMOGLOBIN 11.3 GM/dL (10.7-15.3); LYMPH % 17.1 % (8-40); MCH 25.4 pg (25.7-33.7); MCHC 33.3 g/dl (32.0-36.0); MEAN CELL VOLUME 76.2 fl (80-96); MEAN PLT VOLUME 9.2 fl (7.5-11.1); NEUT % 73.8 % (42.8-82.8); PLATELET COUNT 259 10^3/uL (134-434); RBC 4.44 M/mm3 (3.60-5.2); WHITE BLOOD COUNT 9.5 K/mm3 (4.0-10.0)
[2022-10-15 23:37] LABS: INR 1.1 (0.83-1.09); PROTHROMBIN TIME (PATIENT) 12.8 SEC (9.7-13.0)
[2022-10-15 23:40] LABS: ACTIVATED PTT 29.9 SECONDS (25.2-36.5)
[2022-10-15 23:44] LABS: POTASSIUM 3.6 mmol/L (3.5-5.1)
[2022-10-15 23:46] LABS: ALBUMIN 3.3 g/dl (3.4-5.0); BLOOD UREA NITROGEN 11.1 mg/dL (7-18); MAGNESIUM 1.8 mg/dL (1.8-2.4)
[2022-10-15 23:49] LABS: CREATININE 0.7 mg/dL (0.55-1.3)
[2022-10-15 23:51] LABS: BILIRUBIN,TOTAL 0.2 mg/dL (0.2-1); TOT PROT 7.3 g/dl (6.4-8.2)
[2022-10-15 23:54] LABS: N-TERMINAL BNP 23.1 pg/ml (5-125)
[2022-10-16] MEDS ORDERED: ACETAMINOPHEN 1000 MG/100 ML BAG IVPB PRN (02:02)
[2022-10-16] MEDS ORDERED: ACETAMINOPHEN 1000 MG/100 ML BAG IVPB ONE (02:02)
[2022-10-16] MEDS: INSULIN SLIDING SCALE (NOVOLOG) 1 VIAL SQ SCH ×3 (07:18→16:30)
[2022-10-16 07:20] LABS: HEMATOCRIT 33.7 % (32.4-45.2); HEMOGLOBIN 10.9 GM/dL (10.7-15.3); MCHC 32.4 g/dl (32.0-36.0); MEAN CELL VOLUME 77.3 fl (80-96); MEAN PLT VOLUME 9.4 fl (7.5-11.1); PLATELET COUNT 264 10^3/uL (134-434); RBC 4.36 M/mm3 (3.60-5.2); RDW 16.8 % (11.6-15.6); WHITE BLOOD COUNT 6.8 K/mm3 (4.0-10.0)
[2022-10-16 07:40] LABS: POTASSIUM 3.9 mmol/L (3.5-5.1)
[2022-10-16 07:48] LABS: ALBUMIN 3.3 g/dl (3.4-5.0); CALCIUM 9.2 mg/dL (8.5-10.1)
[2022-10-16 07:49] LABS: BLOOD UREA NITROGEN 9.7 mg/dL (7-18)
[2022-10-16 07:51] LABS: CREATININE 0.6 mg/dL (0.55-1.3)
[2022-10-16 07:53] LABS: BILIRUBIN,TOTAL 0.3 mg/dL (0.2-1); TOT PROT 7.2 g/dl (6.4-8.2)
[2022-10-16] MEDS ORDERED: metoPROLOL SUCCINATE 25 MG TAB.SR.24H (FP) PO SCH (10:00)
[2022-10-16] MEDS ORDERED: HYDROCHLOROTHIAZIDE 25 MG TABLET (FP) PO SCH (10:00)
[2022-10-16] MEDS ORDERED: ENOXAPARIN NA (PORCINE) 40 MG/0.4 ML DISP.SYRIN SQ SCH (10:00)
[2022-10-16] MEDS ORDERED: VENLAFAXINE HCL 37.5 MG E.R. CAPSULE PO ONE (10:44)
[2022-10-16] MEDS ORDERED: ALPRAZolam 0.25 MG TABLET PO ONE (11:30)
[2022-10-16] MEDS ORDERED: metoPROLOL SUCCINATE 25 MG TAB.SR.24H (FP) PO ONE (11:30)
[2022-10-16] MEDS ORDERED: ACETAMINOPHEN 325 MG TABLET (FP) PO ONE (15:57)
[2022-10-16 16:18] VITALS: RESP 20; TEMP 98.3
[2022-10-16 17:35] VITALS: BP 132/72; PULSE 72
== END 2022-10-16 18:52 | disposition home or self-care (01) ==
LOC: JER 22:22 → JERBED 23:36 → OBSVTOIN 10-16 01:37 → INTOOBSV 10-16 01:37 → J4W 10-16 06:05
PROVIDERS: ADMIT Internal Medicine; ATTEND Internal Medicine
PROC: 3E023GC Introduction of Other Therapeutic Substance into Muscle, Percutaneous Approach (ICD-10-PCS; principal; 2022-10-15)
DX: F41.9 Anxiety disorder, unspecified (principal); R00.2 Palpitations; I10 Essential (primary) hypertension; E78.5 Hyperlipidemia, unspecified; Z68.42 Body mass index [BMI] 45.0-49.9, adult; Z98.84 Bariatric surgery status; E66.01 Morbid (severe) obesity due to excess calories; F32.A Depression, unspecified
CPT/HCPCS: 36415; 71045-TC-FY; 80053; 80061; 82330; 82962; 83036; 83735; 83880; 84443; 84484; 85025; 85027; 85379; 85610; 85730; 93005; 93010; 93306-TC; 96372; 99285-25; G0378

== ENCOUNTER 2022-10-24 02:34 | Emergency (ER) | payer OTHER ==
[2022-10-24 03:00] VITALS: BP 120/83; PULSE 81; RESP 20; TEMP 97.8; BMI 48.6
== END 2022-10-24 05:12 | disposition home or self-care (01) ==
LOC: JER 02:34
DX: R00.2 Palpitations (principal); R20.2 Paresthesia of skin; R06.02 Shortness of breath; F41.0 Panic disorder [episodic paroxysmal anxiety]; R09.89 Other specified symptoms and signs involving the circulatory and respiratory systems
CPT/HCPCS: 93005; 93010; 99283-25

== ENCOUNTER 2023-01-07 06:34 | Emergency (ER) | payer OTHER ==
[2023-01-07 06:43] VITALS: RESP 20; BMI 46.9
[2023-01-07] MEDS ORDERED: SODIUM CHLORIDE 0.9% 500 ML INFUS.BAG IV ONE (07:44)
[2023-01-07] MEDS ORDERED: METOCLOPRAMIDE HCL INJECTION 10 MG/2 ML VIAL IVPB ONE (08:10)
[2023-01-07] MEDS ORDERED: METOCLOPRAMIDE HCL INJECTION 10 MG/2 ML VIAL ONE (08:22)
[2023-01-07 09:20] LABS: BASO % 0.6 % (0-2.0); EOS % 2.2 % (0-4.5); HEMATOCRIT 31.9 % (32.4-45.2); HEMOGLOBIN 10.4 GM/dL (10.7-15.3); LYMPH % 20.5 % (8-40); MCH 25.4 pg (25.7-33.7); MCHC 32.6 g/dl (32.0-36.0); MEAN CELL VOLUME 78.1 fl (80-96); MONO % 6.8 % (3.8-10.2); NEUT % 69.9 % (42.8-82.8); PLATELET COUNT 238 10^3/uL (134-434); RBC 4.09 M/mm3 (3.60-5.2); RDW 15.9 % (11.6-15.6); WHITE BLOOD COUNT 8.4 K/mm3 (4.0-10.0)
[2023-01-07 09:26] LABS: EPI CELLS 11 /uL (0-25.1); HYALINE CASTS 0 /uL (0-3.1); URINE APPEARANCE CLEAR; URINE BACTERIA 41 /uL (0-1359); URINE BILIRUBIN NEGATIVE (NEGATIVE); URINE COLOR YELLOW; URINE GLUCOSE (UA) NEGATIVE (NEGATIVE); URINE KETONE NEGATIVE (NEGATIVE); URINE LEUK ESTERASE TRACE (NEGATIVE); URINE NITRITE NEGATIVE (NEGATIVE); URINE PROTEIN NEGATIVE (NEGATIVE); URINE RBC 2 /uL (0-23.9); URINE UROBILINOGEN 0.2 mg/dL (0.2-1.0); URINE WBC 19 /uL (0-25.8)
[2023-01-07 09:41] LABS: POTASSIUM 4.5 mmol/L (3.5-5.1)
[2023-01-07 09:44] LABS: ALBUMIN 2.9 g/dl (3.4-5.0); CALCIUM 8.4 mg/dL (8.5-10.1)
[2023-01-07 09:47] LABS: CREATININE 0.4 mg/dL (0.55-1.3)
[2023-01-07 09:48] LABS: BILIRUBIN,TOTAL 0.4 mg/dL (0.2-1)
[2023-01-07 09:49] LABS: TOT PROT 6.5 g/dl (6.4-8.2)
[2023-01-07 11:08] VITALS: BP 129/78; PULSE 72; TEMP 98.2
== END 2023-01-07 11:08 | disposition home or self-care (01) ==
LOC: JER 06:34
PROC: 3E033GC Introduction of Other Therapeutic Substance into Peripheral Vein, Percutaneous Approach (ICD-10-PCS; principal; 2023-01-07)
DX: I10 Essential (primary) hypertension (principal); R00.2 Palpitations; R20.2 Paresthesia of skin; R51.9 Headache, unspecified; R25.1 Tremor, unspecified; F41.9 Anxiety disorder, unspecified
CPT/HCPCS: 36415; 80053; 81003; 85025; 87086; 93005; 93010; 99284-25

== ENCOUNTER 2023-03-29 10:46 | Emergency (ER) | payer OTHER ==
[2023-03-29 11:46] VITALS: RESP 18; TEMP 97.8; BMI 46.0
[2023-03-29 13:25] VITALS: BP 119/80; PULSE 84
== END 2023-03-29 14:42 | disposition left against medical advice (07) ==
LOC: JER 10:46
DX: I10 Essential (primary) hypertension (principal); R42 Dizziness and giddiness
CPT/HCPCS: 99281-25

== ENCOUNTER 2023-06-13 13:11 | Emergency (ER) | payer OTHER ==
[2023-06-13 13:55] VITALS: BP 111/64; PULSE 88; RESP 16; TEMP 97.7; BMI 46.0
[2023-06-13 16:07] LABS: PH,URINE 5.5 (5.0-8.0); URINE APPEARANCE CLOUDY; URINE BILIRUBIN NEGATIVE (NEGATIVE); URINE COLOR YELLOW; URINE GLUCOSE (UA) NEGATIVE (NEGATIVE); URINE KETONE NEGATIVE (NEGATIVE); URINE LEUK ESTERASE NEGATIVE (NEGATIVE); URINE NITRITE NEGATIVE (NEGATIVE); URINE PROTEIN NEGATIVE (NEGATIVE); URINE UROBILINOGEN 0.2 mg/dL (0.2-1.0)
[2023-06-13 16:10] LABS: HCG,QUALITATIVE URINE Negative
== END 2023-06-13 18:13 | disposition home or self-care (01) ==
LOC: JERFT 13:11 → JER 13:11 → JERFT 18:13
DX: R10.31 Right lower quadrant pain (principal); R32 Unspecified urinary incontinence; N83.291 Other ovarian cyst, right side
CPT/HCPCS: 76830-TC; 81003; 82962; 84703; 87086; 87186; 99284-25

== ENCOUNTER 2023-09-14 05:08 | Emergency (ER) | payer OTHER ==
[2023-09-14] MEDS ORDERED: METOCLOPRAMIDE HCL INJECTION 10 MG/2 ML VIAL ONE (05:49)
[2023-09-14] MEDS ORDERED: ACETAMINOPHEN 500 MG TABLET (FP) ONE (05:50)
[2023-09-14 05:59] VITALS: TEMP 97.9; BMI 49.6
[2023-09-14] MEDS: ACETAMINOPHEN 500 MG TABLET (FP) PO ONE (06:28)
[2023-09-14] MEDS: METOCLOPRAMIDE HCL INJECTION 10 MG/2 ML VIAL IVPUSH ONE (06:28)
[2023-09-14] MEDS: LACTATED RINGERS SOLUTION 1000 ML INFUS.BAG IV ONE (06:29)
[2023-09-14 06:34] LABS: EOS % 2.1 % (0-4.5); HEMATOCRIT 35.3 % (32.4-45.2); HEMOGLOBIN 11.6 GM/dL (10.7-15.3); LYMPH % 32.9 % (8-40); MCH 26.6 pg (25.7-33.7); MCHC 32.8 g/dl (32.0-36.0); MEAN CELL VOLUME 81.1 fl (80-96); MEAN PLT VOLUME 8.9 fl (7.5-11.1); MONO % 8.9 % (3.8-10.2); NEUT % 55.1 % (42.8-82.8); PLATELET COUNT 258 10^3/uL (134-434); RBC 4.35 M/mm3 (3.60-5.2); RDW 16.1 % (11.6-15.6); WHITE BLOOD COUNT 5.9 K/mm3 (4.0-10.0)
[2023-09-14 06:51] LABS: POTASSIUM 3.3 mmol/L (3.5-5.1)
[2023-09-14 06:53] LABS: CALCIUM 8.5 mg/dL (8.5-10.1)
[2023-09-14 06:54] LABS: EPI CELLS 31 /uL (0-25.1); HYALINE CASTS 1 /uL (0-3.1); URINE APPEARANCE CLOUDY; URINE BACTERIA 416 /uL (0-1359); URINE BILIRUBIN NEGATIVE (NEGATIVE); URINE COLOR YELLOW; URINE GLUCOSE (UA) NEGATIVE (NEGATIVE); URINE KETONE NEGATIVE (NEGATIVE); URINE LEUK ESTERASE 2+ (NEGATIVE); URINE NITRITE NEGATIVE (NEGATIVE); URINE PROTEIN NEGATIVE (NEGATIVE); URINE RBC 7 /uL (0-23.9); URINE UROBILINOGEN 0.2 mg/dL (0.2-1.0); URINE WBC 100 /uL (0-25.8)
[2023-09-14 06:54] LABS: BLOOD UREA NITROGEN 10.4 mg/dL (7-18)
[2023-09-14 06:57] LABS: CREATININE 0.6 mg/dL (0.55-1.3)
[2023-09-14] MEDS ORDERED: POTASSIUM CHLORIDE TABS 20 MEQ TABLET.ER (FP) PO ONE (06:57)
[2023-09-14 06:58] LABS: BILIRUBIN,TOTAL 0.2 mg/dL (0.2-1); TOT PROT 7.2 g/dl (6.4-8.2)
[2023-09-14] MEDS: POTASSIUM CHLORIDE ORAL LIQUID 20 MEQ/15 ML PO ONE (07:01)
[2023-09-14 07:15] VITALS: BP 116/57; PULSE 71; RESP 19
== END 2023-09-14 07:20 | disposition home or self-care (01) ==
LOC: JER 05:08
PROC: 3E030GC Introduction of Other Therapeutic Substance into Peripheral Vein, Open Approach (ICD-10-PCS; principal; 2023-09-14)
DX: N39.0 Urinary tract infection, site not specified (principal); R51.9 Headache, unspecified; R06.02 Shortness of breath
CPT/HCPCS: 36415; 80053; 81003; 84703; 85025; 87086; 93005; 93010; 96374; 99284-25

== ENCOUNTER 2024-09-02 13:15 | Emergency (ER) | payer OTHER ==
[2024-09-02 13:24] VITALS: BP 131/85; PULSE 86; RESP 20; TEMP 98.2; BMI 49.6
== END 2024-09-02 14:44 | disposition home or self-care (01) ==
LOC: JER 13:15
DX: E11.65 Type 2 diabetes mellitus with hyperglycemia (principal)
CPT/HCPCS: 82962; 99283-25